=== PATIENT | female | born 2005 | race Hispanic/Latino ===

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

== ENCOUNTER 2024-09-10 03:48 | Emergency (ER) | payer MEDICAID, SELFPAY ==
[2024-09-10 03:48] VITALS: BP 105/76; PULSE 80; RESP 16; TEMP 37; O2SAT 98; BMI 36.9
--- OUTSIDE RECORDS SUMMARY | 2024-09-10 04:16 | XMS RPT_ITS | CCD ---
Author Organization [facility] CliniSyms Care Team Providers Care Lens Generator Name Role Phone LISA, DR MICKEY Barlow Attending Unavaila ble LISA, DR MICEKY Barlow Primary Care Unavaila ble LISA, DR MICKEY Barlow Admitting Unavaila ble Kali, Pratima Referring Unavailable Kali, Pratima Attending Unavailable Kali, Pratima Primary Care Unavailable PHYSICIAN, NOT RECORDED Primary Care Physician U navailable RIDER DO, DR ANTONIO Castrejon Attending Unavailable PHYSICIAN, NOT RECORDED Primary Care Unavaila ble PHYSICIAN, NOT RECORDED Primary Care Unavaila ble RIDER DO, DR ANTONIO Castrejon Attending Unavailable NONE, NONE Primary Care Unavailable NONE, NONE Consulting Unavailable RICK DO~[id number], MERLINE Monique Attending Unavailable RICK DO~[id number], MERLINE Monique Admitting Unavailable NURSEREFERRAL, NURSEREFERRAL Consulting Jenny vailable RICK DO, ISAURA Monique Consulting Unavailable RICK DO, ISAURA Monique Consulting Unavailable DECLINED, Consulting Unavailable DECLINED, Primary Care Unavailable DOMINIQUE DAVENPORT, DR~[id number] ARELIS Attending Unavailable DOMINIQUE DAVENPORT, DR~[id number] ARELIS Admitting Unavailable NURSEREFERRAL, NURSEREFERRAL Consulting Jenny viviana IYER MD, EULOGIO Monique Consulting Unavailable SHIREEN DAVENPORT, EULOGIO Monique Consulting Unavailable DOMINIQUE DAVENPORT, DR INFANTE Consulting Unavaila charles FOX MD, DR INFANTE Consulting Unavaila ble GRAHAM DOLOLA Consulting Unavailable GRAHAM DOLOLA Consulting Unavailable DECLINED, Consulting Unavailable DECLINED, Primary Care Unavailable DOMINIQUE DAVENPORT, DR~[id number] ARELIS Attending Unavailable DOMINIQUE DAVENPORT, DR~[id number] ARELIS Admitting Unavailable NURSEREFERRAL, NURSEREFROCIOAL Consulting Jenny vviiana FOX MD, DR INFANTE Consulting Unavaila charles FOX MD, DR INFANTE Consulting Unavaila ble DECLINED, Consulting Unavailable DECLINED, Primary Care Unavailable DOMINIQUE DAVENPORT, DR~[id number] ARELIS Attending Unavailable DOMINIQUE DAVENPORT, DR~[id number] ARELIS Admitting Unavailable NURSEREFERRAL, NURSEREFERRAL Consulting Jenny FOX MD, DR INFANTE Consulting Unavaila charles FOX MD, DR INFANTE Consulting Unavaila ble NONE, NONE Consulting Unavailable DECLINED, DR Primary Care Unavailable DOMINIQUE DAVENPORT, DR~[id number] ARELIS Attending Unavailable DOMINIQUE DAVENPORT, DR~[id number] ARELIS Admitting Unavailable NURSEREFERRAL, NURSEREFERRAL Consulting Jenny viviana FOX MD, DR INFANTE Consulting Unavaila charles FOX MD, DR INFANTE Consulting Unavaila charles FOX MD, DR~[id number] ARELIS Admitting Unavailable DOMINIQUE DAVENPORT, DR~[id number] ARELIS Attending Unavailable NONE, NONE Primary Care Unavailable NONE, NONE Consulting Unavailable NURSEREFERRAL, NURSEREFERRAL Consulting Jenny FOX MD, DR INFANTE Consulting Unavaila charles FOX MD, DR INFANTE Consulting Unavaila ble NONE, NONE Consulting Unavailable NONE, NONE Primary Care Unavailable DOMINIQUE DAVENPORT, DR~[id number] ARELIS Attending Unavailable DOMINIQUE DAVENPORT, DR~[id number] ARELIS Admitting Unavailable NURSEREFERRAL, NURSEREFERRAL Consulting Jenny FOX MD, DR INFANTE Consulting Unavaila charles FOX MD, DR INFANTE Consulting Unavaila ble NONE, NONE Consulting Unavailable NONE, NONE Primary Care Unavailable DOMINIQUE DAVENPORT, DR~[id number] ARELIS Attending Unavailable DOMINIQUE DAVENPORT, DR~[id number] ARELIS Admitting Unavailable NURSEREFERRAL, NURSEREFERRAL Consulting Jenny FOX MD, DR INFANTE Consulting Unavaila charles FOX MD, DR INFANTE Consulting Unavaila charles FOX MD, DR~[id number] ARELIS Admitting Unavailable DOMINIQUE DAVENPORT, DR~[id number] ARELIS Attending Unavailable NONE, NONE Primary Care Unavailable SHIREEN DAVENPORT, EULOGIO Monique Consulting Unavailable SHIREEN DAVENPORT, EULOGIO Monique Consulting Unavailable NONE, NONE Consulting Unavailable NURSEREFERRAL, NURSEREFERRAL Consulting Jenny FOX MD, DR INFANTE Consulting Unavaila charles FOX MD, DR INFANTE Consulting Unavaila ble DECLINED, Consulting Unavailable DECLINED, DR Primary Care Unavailable DOMINIQUE DAVENPORT, DR~[id number] ARELIS Attending Unavailable DOMINIQUE DAVENPORT, ~[id number] ARELIS Admitting Unavailable NURSEREFERRAL, NURSEREFERRAL Consulting Jenny viviana IYER MD, EULOGIO Monique Consulting Unavailable SHIREEN DAVENPORT, EULOGIO Monique Consulting Unavailable DOMINIQUE DAVENPORT, DR INFANTE Consulting Unavaila charles FOX MD, DR INFANTE Consulting Unavaila ble DECLINED , ~[id number] DECLINED Consulting Unavailable DECLINED , ~[id number] DECLINED Primary Care Unavailable DOMINIQUE DAVENPORT, ARELIS Attending Unavailable DOMINIQUE DAVENPORT, ARELIS Admitting Unavailable NONE, NONE Consulting Unavailable LEIGHA DAVENPORT, YVETTE Consulting Unavailable YVETTE AHUJA MD Consulting Tess FOX MD, ARELIS Consulting Unavailable DOMINIQUE DAVENPORT, DR INFANTE Consulting Unavaila ble DECLINED, Consulting Unavailable DECLINED, DR Primary Care Unavailable DOMINIQUE DAVENPORT, DR~[id number] ARLEIS Attending Unavailable DOMINIQUE DAVENPORT, DR~[id number] ARELIS Admitting Unavailable NURSEREFERRAL, NURSEREFERRAL Consulting Jenny MERLE Lemons CRNA Consulting Unavaila ble MERLE MANN CRNA Consulting Unavaila charles FOX MD, DR INFANTE Consulting Unavaila charles FOX MD, DR INFANTE Consulting Unavaila charles Problems Active Problems Problem Classification Problem Date Documented Date Episodic/Chronic OB-related trauma to perineum and vulva (1 source) Second degree perineal laceration during delivery; Translations: [SECOND DEG PERINEAL LAC DUR DELIV] Onset: 01-23-2024 Episodic Other complications of ; puerperium affecting management of mother (1 source) Streptococcus B carrier state complicating childbirth; Translations: [STREP B [place] STATE COMP CHILDBIRTH] Onset: 01-23-2024 Episodic Other female genital disorders (3 sources) Abnormal uterine and vaginal bleeding, unspecified; Translations: [ABNORMAL UTERINE VAGINAL BLEED UNS] Onset: 03-03-2024 Chronic Other nutritional; endocrine; and metabolic disorders (3 sources) Abnormal weight gain; Translations: [ABNORMAL WEIGHT GAIN] Onset: 03-13-2024 Episodic Other and delivery including normal (10 sources) ; Translations: [Encounter for supervision of normal first , third trimester] Onset: 10-05-2023 02-17-2023 Episodic Comment on above: System added from do cumentation. Status documented as Yes on Admission Other upper respiratory infections (1 source) Acute pharyngitis, unspecified; Translations: [Acute pharyngitis, unspecified] Onset: 08-13-2022 Episodic Residual codes; unclassified (1 source) 39 weeks gestation of ; Translations: [39 WEEKS GESTATION OF ] Onset: 01-23-2024 Episodic Unclassified (2 sources) ENCOUNTER FOR SCREENING FOR COVID-19; Translations: [ENCOUNTER FOR SCREENING FOR COVID-19] Onset: 09-22-2020 Past or Other Problems Problem Classification Problem Date Documented Da te Episodic/Chronic Bacterial infection; unspecified site (3 sources) Chlamydial infection, unspecified; Translations: [CHLAMYDIAL INFECTION UNSPECIFIED] Onset: 09-19-2023 Episodic Other complications of (3 sources) Decreased movements, third trimester, not applicable or unspecified; Translations: [DECR MOVEMENTS 3RD TRI NA/UNS] Onset: 01-09-2024 Episodic Other complications of (3 sources) Decreased movements, unspecified trimester, not applicable or unspecified; Translations: [DECR MOVEMENTS UNS TRI NA/UNS] Onset: 11-13-2023 Episodic Other screening for suspected conditions (not mental disorders or infectious disease) (1 source) Encounter for screening for growth retardation; Translations: [ENC A/TL SCR GROWTH RETARD] Onset: 11-23-2023 Episodic Polyhydramnios and other problems of amniotic cavity (3 sources) Oligohydramnios, third trimester, not applicable or unspecified; Translations: [OLIGOHYDRAMNIOS THIRD TRI NA/UNS] Onset: 12-20-2023 Episodic Residual codes; unclassified (1 source) 37 weeks gestation of ; Translations: [37 WEEKS GESTATION OF ] Onset: 01-10-2024 Episodic Residual codes; unclassified (1 source) 35 weeks gestation of ; Translations: [35 WEEKS GESTATION OF ] Onset: 12-24-2023 Episodic Residual codes; unclassified (1 source) 32 weeks gestation of ; Translations: [32 WEEKS GESTATION OF ] Onset: 11-23-2023 Episodic Residual codes; unclassified (1 source) 22 weeks gestation of ; Translations: [22 WEEKS GESTATION OF ] Onset: 09-26-2023 Episodic Unclassified (1 source) ENCOUNTER FOR SCREENING FOR COVID-19; Translations: [ENCOUNTER FOR SCREENING FOR COVID-19] Onset: 09-22-2020 Results Test Name Value Interpretation Reference Range Facility CHLAM GONORRHEA and TRICH NA Aon 03-18-2024 Chlamydia by EZE Negative Normal Negative [facility] Comment on above: Performed By: #### 4 0667-8 #### [facility] [address] [place] [address] [employer] - Cami VINCENT [id number] Gonococcus by EZE Negative Normal Negative [facility] Comment on above: Performed By: #### 4 0667-8 #### [facility] [address] [place] [address] [employer] - Cami LOMELIIA [id number] Trich vag by EZE Negative Normal Negative [facility] Comment on above: Performed By: #### 4 0667-8 #### [facility] [address] [place] [address] [employer] VINCENT [id number] CULTURE URINEon 01-18-2024 Bacteria identified Cx Nom (U) NO PATHOGENS GROWN AFTER 2 DAYS Normal [facility] Comment on above: Performed By: #### U PRCR #### [facility] [address] [place] [address] Rd. [place] [address] [employer] VINCENT [id number] RPRR SEND OUTon 01-17-2024 Reagin Ab RPR Ql (S) Non-Reactive Normal Non Reactive [facility] Comment on above: Performed By: #### 4 0667-8 #### [facility] [address] [place] [address] [employer] VINCENT [id number] CBC W Auto Differential pane l (Bld)on 01-16-2024 Basophils (Bld) [#/Vol] 0.03 10*3/uL Normal <=0.70 [facility] Comment on above: Performed By: #### 4 0667-8 #### [facility] [address] [place] [address] [employer] - [employer]i VINCENT [id number] Basophils/100 WBC (Bld) 0.2 % Normal <=2.0 [facility] Comment on above: Performed By: #### 4 0667-8 #### [facility] [address] [place] [address] [employer] - Cami LOMELIIA [id number] Eosinophils (Bld) [#/Vol] 0.11 10*3/uL Normal <=0.70 [facility] Comment on above: Performed By: #### 4 0667-8 #### [place] [address] [place] [address] [employer] - Cami LOMELIIA [id number] Eosinophils/100 WBC (Bld) 0.9 % Normal <=10.0 [facility] Comment on above: Performed By: #### 4 0667-8 #### [address] [place] [address] [employer] - Cami LOMELIIA [id number] Erythrocyte distribution width (RBC) [Entitic vol] 41.4 fL Normal 36.4-46.3 [facility] Comment on above: Performed By: #### 4 0667-8 #### [address] [facility] [place] [address] [employer] - Cami LOMELIIA [id number] Hematocrit (Bld) [Volume fraction] 30.3 % Low 37.0-47.0 [facility] Comment on above: Performed By: #### 4 0667-8 #### [address] [place] [address] [employer] - Cami LOMELIIA [id number] Hemoglobin (Bld) [Mass/Vol] 10.0 g/dL Low 12.0-16.0 [facility] Comment on above: Performed By: #### 4 0667-8 #### [address] Director - Cami LOMELIIA [id number] Immature granulocytes (Bld) [#/Vol] 0.05 10*3/uL Normal <=0.10 [facility] Comment on above: Performed By: #### 4 0667-8 #### [place] [address] [place] [address] [employer] - Cami LOMELIIA [id number] Immature granulocytes/100 WBC (Bld) 0.40 % Normal <=1.50 [facility] Comment on above: Performed By: #### 4 0667-8 #### [facility] [address] [place] [address] [employer] - Cami LOMELIIA [id number] Lymphocytes (Bld) [#/Vol] 2.25 10*3/uL Normal 1.20-3.40 [facility] Comment on above: Performed By: #### 4 0667-8 #### [place] [address] [place] [address] [employer] - [employer]i VINCENT [id number] Lymphocytes/100 WBC (Bld) 17.7 % Low 20.0-40.0 [facility] Comment on above: Performed By: #### 4 0667-8 #### [place] [address] [place] [address] [employer] - Cami VINCENT [id number] MCH (RBC) [Entitic mass] 26.5 pg Low 27.0-31.0 [facility] Comment on above: Performed By: #### 4 0667-8 #### [place] [address] [place] [address] [employer] - [employer] VINCENT [id number] MCHC (RBC) [Mass/Vol] 33.0 g/dL Normal 32.0-36.0 [facility] Comment on above: Performed By: #### 4 0667-8 #### [place] [address] [place] [address] [employer] - [employer] VINCENT [id number] MCV (RBC) [Entitic vol] 80.2 fL Normal 80.0-100.0 [facility] Comment on above: Performed By: #### 4 0667-8 #### [place] [address] [place] [address] [employer] - [employer] VINCENT [id number] Monocytes (Bld) [#/Vol] 0.65 10*3/uL High 0.10-0.60 [facility] Comment on above: Performed By: #### 4 0667-8 #### [address] [place] [address] [employer] - Cami Olvera CLIA [id number] Monocytes/100 WBC (Bld) 5.1 % Normal <=8.0 [facility] Comment on above: Performed By: #### 4 0667-8 #### [place] [address] [employer] - Cami Olvera CLIA [id number] Neutrophils (Bld) [#/Vol] 9.60 10*3/uL High 1.40-6.50 [facility] Comment on above: Performed By: #### 4 0667-8 #### [place] [address] [employer] - Cami Olvera CLIA [id number] Neutrophils/100 WBC (Bld) 75.7 % High 50.0-70.0 [facility] Comment on above: Performed By: #### 4 0667-8 #### [place] [address] [employer] - Cami LOMELIIA [id number] Nucleated RBC (Bld) [#/Vol] 0.00 10*3/uL Normal <=0.10 [facility] Comment on above: Performed By: #### 4 0667-8 #### [place] [address] [employer] - Cami Olvera CLIA [id number] Platelet mean volume (Bld) [Entitic vol] 11.1 fL Normal 9.0-13.0 [facility] Comment on above: Performed By: #### 4 0667-8 #### [place] [address] [employer] - [employer]i Olvera CLIA [id number] Platelets (Bld) [#/Vol] 300 10*3/uL Normal 130-400 [facility] Comment on above: Performed By: #### 4 0667-8 #### [facility] [address] [place] [address] [employer] - [employer] VINCENT [id number] RBC (Bld) [#/Vol] 3.78 10*6/uL Low 4.00-6.30 [facility] Comment on above: Performed By: #### 4 0667-8 #### [place] [address] [place] [address] [employer] - [employer] VINCENT [id number] WBC (Bld) [#/Vol] 12.69 10*3/uL High 4.80-10.80 [facility] Comment on above: Performed By: #### 4 0667-8 #### [address] [place] [address] [employer] VINCENT [id number] Drugs identified Screen Nom (U)on 01-16-2024 Amphetamines Ql (U) Not detected Normal CUTOFF = 500 K [facility] Comment on above: Performed By: #### 4 0667-8 #### [place] [address] [place] [address] [employer] - [employer] VINCENT [id number] Barbiturates Ql (U) Not detected Normal CUTOFF = 200 K [facility] Comment on above: Performed By: #### 4 0667-8 #### [place] [address] [place] [address] [employer] - [employer] VINCENT [id number] Benzodiazepines Ql (U) Not detected Normal CUTOFF = 15 0 [facility] Comment on above: Performed By: #### 4 0667-8 #### [place] [address] [address] [place] [address] [employer] - [place] VINCENT [id number] Cocaine Ql (U) Not detected Normal CUTOFF = 150 [facility] Comment on above: Performed By: #### 4 0667-8 #### [place] [address] [place] [address] [employer] - [employer] VINCENT [id number] HDRUG Drugs of abuse screening provides only a preliminary analytical test result. A more specific alternate chemical method must be used in order to obtain a confimed analytical result. Clinical consideration and professional judgment should be applied to any drug of abuse test result, particularly when preliminary positive results are obtained. Normal [facility] Comment on above: Performed By: #### 4 0667-8 #### [facility] [address] [place] [address] [employer] - Cami LOMELIIA [id number] Methadone Ql (U) Not detected Normal CUTOFF = 200 [facility] Comment on above: Performed By: #### 4 0667-8 #### [place] [address] [place] [address] [employer] - [employer] VINCENT [id number] Opiates Ql (U) Not detected Normal CUTOFF = 300 [facility] Comment on above: Performed By: #### 4 0667-8 #### [facility] [address] [place] [address] [employer] - Cami LOMELIIA [id number] oxyCODONE Ql (U) Not detected Normal CUTOFF = 100 [facility] Comment on above: Performed By: #### 4 0667-8 #### [facility] [address] [place] [address] [employer] - [place] VINCENT [id number] Phencyclidine Ql (U) Not detected Normal CUTOFF = 25 [facility] Comment on above: Performed By: #### 4 0667-8 #### [facility] [address] [place] [address] [employer] - Cami LOMELIIA [id number] Tetrahydrocannabinol Ql (U) Not detected Normal CUTOFF = 50 [facility] Comment on above: Performed By: #### 4 0667-8 #### [facility] [address] [place] [address] [employer] VINCENT [id number] URINALYSIS with reflex to CU LTUREon 01-16-2024 Bacteria LM Ql (Urine sed) Negative Normal TRACE [facility] Comment on above: Performed By: #### G CCHTR #### Performed for [facility] [address] [place], [place] [address] Bilirubin (U) [Mass/Vol] Negative Normal NEGATIVE [facility] Comment on above: Performed By: #### G CCHTR #### Performed for [facility] [address], [place] [address] Clarity (U) CLEAR Normal CLEAR [facility] Comment on above: Performed By: #### G CCHTR #### Performed for [facility] [address] [place], [place] [address] Color (U) YELLOW Normal YELLOW [facility] Comment on above: Performed By: #### G CCHTR #### Performed for [facility] [address] [place], [place] [address] Glucose Test strip (U) [Mass/Vol] Negative Normal NEGATIVE [facility] Comment on above: Performed By: #### G CCHTR #### Performed for [facility] [address], [place] [address] HMICRO MICROSCOPIC Normal [facility] Comment on above: Performed By: #### G CCHTR #### Performed for [facility] [address] [address] Hyaline casts (Urine sed) [#/Area] 0-8 Normal 0-8 [facility] Comment on above: Performed By: #### G CCHTR #### Performed for [facility] [address], [place] [address] Ketones (U) [Mass/Vol] Negative Normal NEGATIVE [facility] Comment on above: Performed By: #### G CCHTR #### Performed for [facility] [address] [address] Leukocyte esterase Qn (U) 3+ Abnormal TRACE [facility] Comment on above: Performed By: #### G CCHTR #### Performed for [facility] [address] [place], [place] [address] Nitrite Ql (U) Negative Normal NEGATIVE [facility] Comment on above: Performed By: #### G CCHTR #### Performed for [facility] [address] [place], [place] [address] pH (U) 6.0 [pH] Normal 5.5-7.5 [facility] Comment on above: Performed By: #### G CCHTR #### Performed for [facility] [address] [place], [place] [address] Protein (U) [Mass/Vol] Negative Normal NEGATIVE [facility] Comment on above: Performed By: #### G CCHTR #### Performed for [address] [address] RBC (U) [#/Vol] Negative Normal NEGATIVE [facility] Comment on above: Performed By: #### G CCHTR #### Performed for [address] [address] RBC LM.HPF (Urine sed) [#/Area] 0-4 Normal 0-4 [facility] Comment on above: Performed By: #### G CCHTR #### Performed for [address] [address] Specific gravity (U) [Rel density] 1.021 Normal 1.010-1.035 [facility] Comment on above: Performed By: #### G CCHTR #### Performed for [address] [address] SQUAMOUS EPITHELIALS 0-5 Normal 0-5 [facility] Comment on above: Performed By: #### G CCHTR #### Performed for [address] [address] Urobilinogen Qn (U) 0.2 {Rodger'U}/dL Normal <=1.0 [facility] Comment on above: Performed By: #### G CCHTR #### Performed for [address] [address] WBC LM.HPF (Urine sed) [#/Area] 50-100 Abnormal 0-5 [facility] Comment on above: Performed By: #### G CCHTR #### Performed for [address] [address] CBC W Auto Differential pane l (Bld)on 01-01-2024 Basophils (Bld) [#/Vol] 0.02 10*3/uL Normal <=0.70 [facility] Comment on above: Performed By: #### 4 0667-8 #### [address] [place] [address] [employer] - Cami LOMELIIA [id number] Basophils/100 WBC (Bld) 0.2 % Normal <=2.0 [facility] Comment on above: Performed By: #### 4 0667-8 #### [address] [place] [address] [employer] - [place] LOMELIIA [id number] Eosinophils (Bld) [#/Vol] 0.11 10*3/uL Normal <=0.70 [facility] Comment on above: Performed By: #### 4 0667-8 #### [address] [place] [address] [employer] - Cami Olvera CLIA [id number] Eosinophils/100 WBC (Bld) 1.1 % Normal <=10.0 [facility] Comment on above: Performed By: #### 4 0667-8 #### [address] [facility] [place] [address] [employer] - [place]i LOMELIIA [id number] Erythrocyte distribution width (RBC) [Entitic vol] 40.2 fL Normal 36.4-46.3 [facility] Comment on above: Performed By: #### 4 0667-8 #### [address] [place] [address] [employer] - [employer] LOMELIIA [id number] Hematocrit (Bld) [Volume fraction] 30.3 % Low 37.0-47.0 [facility] Comment on above: Performed By: #### 4 0667-8 #### [address] [place] [address] [employer] - [employer]i Olvera CLIA [id number] Hemoglobin (Bld) [Mass/Vol] 10.0 g/dL Low 12.0-16.0 [facility] Comment on above: Performed By: #### 4 0667-8 #### [place] [address] [employer] Olvera CLIA [id number] Immature granulocytes (Bld) [#/Vol] 0.05 10*3/uL Normal <=0.10 [facility] Comment on above: Performed By: #### 4 0667-8 #### [place] [address] [employer] Olvera CLIA [id number] Immature granulocytes/100 WBC (Bld) 0.50 % Normal <=1.50 [facility] Comment on above: Performed By: #### 4 0667-8 #### [place] [address] [employer] Olvera CLIA [id number] Lymphocytes (Bld) [#/Vol] 1.76 10*3/uL Normal 1.20-3.40 [facility] Comment on above: Performed By: #### 4 0667-8 #### [place] [address] [employer] - [employer]i Olvera CLIA [id number] Lymphocytes/100 WBC (Bld) 17.6 % Low 20.0-40.0 [facility] Comment on above: Performed By: #### 4 0667-8 #### [place] [address] [employer] - [employer] Olvera CLIA [id number] MCH (RBC) [Entitic mass] 27.0 pg Normal 27.0-31.0 [facility] Comment on above: Performed By: #### 4 0667-8 #### [place] [address] [employer] - [employer]i Olvera CLIA [id number] MCHC (RBC) [Mass/Vol] 33.0 g/dL Normal 32.0-36.0 [facility] Comment on above: Performed By: #### 4 0667-8 #### [facility] [address] [place] [address] [employer] - Cami LOMELIIA [id number] MCV (RBC) [Entitic vol] 81.9 fL Normal 80.0-100.0 [facility] Comment on above: Performed By: #### 4 0667-8 #### [place] [address] [place] [address] [employer] - [employer]i LOMELIIA [id number] Monocytes (Bld) [#/Vol] 0.53 10*3/uL Normal 0.10-0.60 [facility] Comment on above: Performed By: #### 4 0667-8 #### [place] [address] [place] [address] [employer] - [employer]i LOMELIIA [id number] Monocytes/100 WBC (Bld) 5.3 % Normal <=8.0 [facility] Comment on above: Performed By: #### 4 0667-8 #### [place] [address] [place] [address] [employer] - Cami LOMELIIA [id number] Neutrophils (Bld) [#/Vol] 7.55 10*3/uL High 1.40-6.50 [facility] Comment on above: Performed By: #### 4 0667-8 #### [address] [place] [address] [employer] - Cami LOMELIIA [id number] Neutrophils/100 WBC (Bld) 75.3 % High 50.0-70.0 [facility] Comment on above: Performed By: #### 4 0667-8 #### [address] [place] [address] [employer] - Cami LOMELIIA [id number] Nucleated RBC (Bld) [#/Vol] 0.00 10*3/uL Normal <=0.10 [facility] Comment on above: Performed By: #### 4 0667-8 #### [place] [address] [place] [address] [employer] - Cami VINCENT [id number] Platelet mean volume (Bld) [Entitic vol] 10.9 fL Normal 9.0-13.0 [facility] Comment on above: Performed By: #### 4 0667-8 #### [facility] [address] [place] [address] [employer] - Cami LOMELIIA [id number] Platelets (Bld) [#/Vol] 296 10*3/uL Normal 130-400 [facility] Comment on above: Performed By: #### 4 0667-8 #### [facility] [address] [place] [address] [employer] - Cami VINCENT [id number] RBC (Bld) [#/Vol] 3.70 10*6/uL Low 4.00-6.30 [facility] Comment on above: Performed By: #### 4 0667-8 #### [place] [address] [place] [address] [employer] - Cami VINCENT [id number] WBC (Bld) [#/Vol] 10.02 10*3/uL Normal 4.80-10.80 [facility] Comment on above: Performed By: #### 4 0667-8 #### [facility] [address] [place] [address] [employer] - Cami VINCENT [id number] CREATININEon 01-01-2024 Creatinine [Mass/Vol] 0.44 mg/dL Low 0.51-0.95 [facility] Comment on above: Performed By: #### 1 4805-6, 1920-8, 1742-6, 3084-1, 2160-0 #### [facility] [address] [place] [address] [employer] - Cami VINCENT [id number] Creatinine [Mass/Vol]on 12-11 GFR/1.73 sq M.predicted MDRD (S/P/Bld) [Vol rate/Area] mL/min/{1.73_m2} Normal >=60 [facility] Comment on above: Performed By: #### 1 4805-6, 8, 1741-08, 3083-03, 2159-0 #### [facility] [address] [facility]. [place] [address] [employer] - Cami VINCENT [id number] HGFR GLOMERULAR FILTRATION RATE INTERPRETATION~The eGFR is calculated using the MDRD equation.~This equation has been validated in patients with chronic kidney disease;~however, it underestimates the GFR in healthy patients with GFR's over 60 mL/min.~The equation is not valid in children under the age of 18.~NOTE: Criteria for Chronic Kidney Disease:~ ~1. Kidney damage for at least three months, as defined~by structural or functional abnormalities of the kidney,~with or without decreased glomerular filtration rate, manifested by either:~* Pathological abnormalities or~* Markers of Kidney damage, including abnormalities in~the composition of the blood or urine or abnormalities in imaging tests.~ ~2. GFR <60 mL/min/1.73 m squared for at least three months, with or without kidney damage.~ Normal [facility] Comment on above: Performed By: #### 1 4805-6, 1919-10, 1741-08, 3083-03, 2159-0 #### [facility] [address] [place] [address] [employer] - Cami VINCENT [id number] LDHon 01-01-2024 LDH Pyruvate to lactate reaction [Catalytic activity/Vol] 123 U/L Normal 84-246 [facility] Comment on above: Performed By: #### 1 4805-6, 8, 6, 3083-, 0-0 #### [facility] [address] [place] [address] [employer] - Cami VINCENT [id number] SGOT Diana 01-01-2024 AST [Catalytic activity/Vol] 11 U/L Low 15-37 [facility] Comment on above: Performed By: #### 1 4805-6, 1919-10, 1742-6, 3084-1, 2160-0 #### [facility] [address] [place] [address] [employer] - Cami VINCENT [id number] SGPT Marie 01-01-2024 ALT [Catalytic activity/Vol] 9 U/L Low 14-59 [facility] Comment on above: Performed By: #### 1 4805-6, 0-8, 1742-6, 3084-1, 2160-0 #### [facility] [address] [place] [address] [employer] - Turtle Beacherick LOMELIResident Research [id number] URIC ACIDon 01-01-2024 Urate [Mass/Vol] 3.9 mg/dL Normal 2.6-6.0 [facility] Comment on above: Performed By: #### 1 4805-6, 1919-8, 1741-6, 3084-1, 2160-0 #### [facility] [address] [place] [address] [employer] - SuperbIA [id number] URINE PROTEIN to CREAT RATIO RANDOMon 01-01-2024 Creatinine (U) [Mass/Vol] 119.00 mg/dL Normal [facility] Comment on above: Performed By: #### U PRCR #### [facility] [address] [place] [address] [employer] - Cami Olvera [employer] FinancialIA [id number] Protein Ql (U) 18 mg/dL High <=12 [facility] Comment on above: Performed By: #### U PRCR #### [facility] [address] [place] [address] [employer] - Turtle Beachrell Wallaby FinancialIA [id number] URINE MA/CR RATIO 0.2 mg/mg Normal <=0.2 [facility] Comment on above: Result Comment: A mi lligram per milligram protein to creatinine ratio of 0.2 or less is normal, whereas a ratio of 3.5 or greater is in the nephrotic range. Performed By: #### U PRCR #### [facility] [address] [place] [address] [employer] - Cami VINCENT [id number] CULTURE GROUP B STREP ONLYon 12-26-2023 CULTURE GROUP B STREP ONLY Positive Normal [facility] Comment on above: Performed By: #### U PRCR #### [facility] [address] [place] [address] [employer] - Cami Olveraerick VINCENT [id number] ULTRASOUND 2ND OR 3RD TRIMESTERon 11-21-2023 ULTRASOUND 2ND OR 3RD TRIMESTER EXAM: ULTRASOUND 2ND OR 3RD TRIMESTER 11/21/2023 10:19 AM EDT: HISTORY: care: primigravida. FINDINGS: EVALUATION Number of Fetuses : 1 Presentation: Cephalic. Heart Rate: 148 bpm. Placenta: Anterior. Placenta cord insertion: Normal. LOPEZ: 8.50 cm (5th-50th percentile) MVP: 3.16 cm, right upper quadrant CERVIX LENGTH: Not obtained. GESTATIONAL AGE: Provided gestational age: 31 weeks, 1 day Provided LINDA: 01/22/2024 Sonographic gestational age: 32 weeks, 5 days Sonographic LINDA: 01/11/2024 BIOMETRY: BPD: 8.31. HC: 30.13. AC: 28.62. FL: 5.98. Estimated weight 1954 g +/- 293.1 g (4 pounds, 5 ounces). 78.0th percentile Growth ratios: Normal. CI: 79.14 FL/BPD: 71.96 HC/AC: 1.05 FL/AC: 20.89 FL/HC: 19.85 ANATOMY: HEAD, FACE, NECK: Lateral ventricle: Normal Appearance Choroid plexus: Normal Appearance Midline falx: Normal Appearance Cavum: Normal Appearance Cerebellum: Normal Appearance Cisterna Magna: Normal Appearance Facial features: Normal Appearance CHEST: 4 chamber heart: Normal Appearance LVOT/RVOT: Normal Appearance Diaphragm: Normal appearance ABDOMEN: Stomach: Normal Appearance Abdominal situs: Normal Appearance Kidneys: Normal Appearance Bladder: Normal Appearance Cord insertion: Normal Appearance Cord: 3 vessels Spine: Normal Appearance EXTREMITIES: Lower Extremities: Normal Appearance Upper Extremities: Normal Appearance MATERNAL FINDINGS: No maternal adnexal abnormality. IMPRESSION: 1. Living intrauterine , cephalic presentation. 2. Composite sonographic age 32 weeks, 5 days. 3. Estimated weight 1954 g, 4 pounds, 5 ounces. Normal [facility] URINALYSIS with reflex to CU LTUREon 11-13-2023 Bacteria LM Ql (Urine sed) Normal TRACE [facility] Comment on above: Performed By: #### 4 0667-8 #### [facility] [address] [place] [address] [employer] - Cami VINCENT [id number] Bilirubin (U) [Mass/Vol] Negative Normal NEGATIVE [facility] Comment on above: Performed By: #### 4 0667-8 #### [facility] [address] [place] [address] [employer] - Cami VINCENT [id number] Clarity (U) CLEAR Normal CLEAR [facility] Comment on above: Performed By: #### 4 0667-8 #### [facility] [address] [place] [address] [employer] - Cami VINCENT [id number] Color (U) YELLOW Normal YELLOW [facility] Comment on above: Performed By: #### 4 0667-8 #### [facility] [address] [place] [address] [employer] - Cami VINCENT [id number] Glucose Test strip (U) [Mass/Vol] Negative Normal NEGATIVE [facility] Comment on above: Performed By: #### 4 0667-8 #### [facility] [address] [place] [address] [employer] - Cami VINCENT [id number] HMICRO MICROSCOPIC Normal [facility] Comment on above: Performed By: #### 4 0667-8 #### [facility] [address] [place] [address] [employer] - Cami VINCENT [id number] Hyaline casts (Urine sed) [#/Area] Normal 0-8 [facility] Comment on above: Performed By: #### 4 0667-8 #### [facility] [address] [place] [address] [employer] - Cami VINCENT [id number] Ketones (U) [Mass/Vol] Negative Normal NEGATIVE [facility] Comment on above: Performed By: #### 4 0667-8 #### [facility] [address] [facility] [place] [address] [employer] - Cami LOMELIIA [id number] Leukocyte esterase Qn (U) Negative Normal TRACE [facility] Comment on above: Performed By: #### 4 0667-8 #### [facility] [address] [facility] [place] [address] [employer] - Cami LOMELIIA [id number] Nitrite Ql (U) Negative Normal NEGATIVE [facility] Comment on above: Performed By: #### 4 0667-8 #### [facility] [address] [place] [address]. [place] [address] [employer] - Cami LOMELIIA [id number] pH (U) 6.0 [pH] Normal 5.5-7.5 [facility] Comment on above: Performed By: #### 4 0667-8 #### [facility] [address] [place] [address]. [place] [address] [employer] - Cami LOMELIIA [id number] Protein (U) [Mass/Vol] Negative Normal NEGATIVE [facility] Comment on above: Performed By: #### 4 0667-8 #### [facility] [address] [place] [address]. [place] [address] [employer] - Cami LOMELIIA [id number] RBC (U) [#/Vol] Negative Normal NEGATIVE [facility] Comment on above: Performed By: #### 4 0667-8 #### [facility] [address] [facility] [place] [address] [employer] - Cami LOMELIIA [id number] RBC LM.HPF (Urine sed) [#/Area] Normal 0-4 [facility] Comment on above: Performed By: #### 4 0667-8 #### [facility] [address] [facility] [place] [address] [employer] - Cami Olvera CLIA [id number] Specific gravity (U) [Rel density] 1.010 Normal 1.010-1.035 [facility] Comment on above: Performed By: #### 4 0667-8 #### [facility] [address] [place] [address] [employer] - [facility] [id number] SQUAMOUS EPITHELIALS Normal 0-5 [facility] Comment on above: Performed By: #### 4 0667-8 #### [address] [place] [address] [employer] - [facility] [id number] Urobilinogen Qn (U) 0.2 {Rodger'U}/dL Normal <=1.0 [facility] Comment on above: Performed By: #### 4 0667-8 #### [address] [place] [address] [employer] - [facility] [id number] WBC LM.HPF (Urine sed) [#/Area] Normal 0-5 [facility] Comment on above: Performed By: #### 4 0667-8 #### [address] [place] [address] [employer] - [facility] [id number] CBC panel Auto (Bld)on 10-28 Erythrocyte distribution width (RBC) [Entitic vol] 39.6 fL Normal 36.4-46.3 [facility] Comment on above: Performed By: #### G CCHTR #### Performed for [facility] [address] [place] [address] Hematocrit (Bld) [Volume fraction] 32.2 % Low 37.0-47.0 [facility] Comment on above: Performed By: #### G CCHTR #### Performed for [place] [address] Hemoglobin (Bld) [Mass/Vol] 10.8 g/dL Low 12.0-16.0 [facility] Comment on above: Performed By: #### G CCHTR #### Performed for [place] [address] MCH (RBC) [Entitic mass] 28.7 pg Normal 27.0-31.0 [facility] Comment on above: Performed By: #### G CCHTR #### Performed for [address] [address] MCHC (RBC) [Mass/Vol] 33.5 g/dL Normal 32.0-36.0 [facility] Comment on above: Performed By: #### G CCHTR #### Performed for [address] [address] MCV (RBC) [Entitic vol] 85.6 fL Normal 80.0-100.0 [facility] Comment on above: Performed By: #### G CCHTR #### Performed for [address] [address] Platelet mean volume (Bld) [Entitic vol] 10.7 fL Normal 9.0-13.0 [facility] Comment on above: Performed By: #### G CCHTR #### Performed for [address] [address] Platelets (Bld) [#/Vol] 292 10*3/uL Normal 130-400 [facility] Comment on above: Performed By: #### G CCHTR #### Performed for [address] [address] RBC (Bld) [#/Vol] 3.76 10*6/uL Low 4.00-6.30 [facility] Comment on above: Performed By: #### G CCHTR #### Performed for [address] [address] WBC (Bld) [#/Vol] 10.04 10*3/uL Normal 4.80-10.80 [facility] Comment on above: Performed By: #### G CCHTR #### Performed for [address] [address] GLUCOSE CHALLENGEon 10-29-19 24 Glucose 1 Hr post dose glucose [Mass/Vol] 89 mg/dL Normal 70-140 [facility] Comment on above: Performed By: #### 4 0667-8 #### [place] [address] [facility] [place] [address] [employer] - Camisolomon Olvera ARMANIEDISON [id number] Glucose 1 Hr post dose gluco se [Mass/Vol]on 10-29-2023 HGLUCHAL NOTE: If patient value is equal to or exceeds 140 mg/dL, the 3 HR Oral Glucose Tolerance Test is recommended. Normal [facility] Comment on above: Performed By: #### 4 0667-8 #### [address] [place] [address] [employer] - Cami LOMELIEDISON [id number] CULTURE URINEon 10-07-2023 CULTURE URINE COLONY COUNT = ZERO COLONY FORMING UNITS, ML ISOL NO GROWTH OBSERVED AFTER 1 DAY NO GROWTH OBSERVED AFTER 2 DAYS Normal [facility] Comment on above: Performed By: #### G CCHTR #### Performed for [place] [address] RPRR SEND OUTon 10-07-2023 Reagin Ab RPR Ql (S) Non-Reactive Normal Non Reactive [facility] Comment on above: Performed By: #### R PRR #### Performed for [place] [address] HEP B SURFACE Agon HBV surface Ag Ql (S) Non-Reactive Normal NONREACTIVE [facility] Comment on above: Performed By: #### G CCHTR #### Performed for [place] [address] HHBVSAG INTERPRETATION OF RESULTS A NONREACTIVE test result means that the specimen is presumed to be negative for HBsAg. A REACTIVE test result means that the specimen is reactive for HBsAg. All reactive results will be followed up with confirmatory testing. Normal [facility] Comment on above: Performed By: #### G CCHTR #### Performed for [place] [address] HEP C Ab with REFLEX CONFIRM ATIONon 10-05-2023 HEP C Ab Non-Reactive Normal [facility] Comment on above: Performed By: #### G CCHTR #### Performed for [address], [place] [address] HHCV INTERPRETATION OF RESULTS A NONREACTIVE test result means that the specimen is presumed to be negative for Hep C Ab. A REACTIVE test result means that the specimen is reactive for Hep C Ab. All reactive results will be followed up with confirmatory testing. Normal [facility] Comment on above: Performed By: #### G [facility] #### Performed for [place] [address] [place] [address] HIV RAPID W/CONFIRMATIONon 0 10-05-2023 HHIV INTERPRETATION OF RESULTS A NON REACTIVE test result means that HIV-1 and HIV-2 antibodies and p24 antigen have not been detected in the specimen. A REACTIVE test result means that HIV-1 and HIV-2 antibodies and/or p24 antigen have been detected in the specimen. This HIV 1,2 and p24 antigen test is a rapid screen for the presence of HIV 1 and 2 antibodies and p24 antigen. All reactive test results will be followed up with confirmatory testing. Normal [facility] Comment on above: Performed By: #### H IVRAP #### [address] [place] [address] [employer] - Cami VINCENT [id number] HIV 1+2 Ab Ql (S) Non-Reactive Normal NON REACTIVE [facility] Comment on above: Performed By: #### H IVRAP #### [address] [place] [address] [employer] - Cami LOMELIIA [id number] Non-Reactive Normal NON REACTIVE [facility] Comment on above: Performed By: #### H IVRAP #### [place] [address] [place] [address] [employer] - Cami LOMELIIA [id number] RUBELLA Ab IgGon 10-05-2023 Rubella virus IgG IA Ql 27.9 IU/mL Normal [facility] Comment on above: Performed By: #### 4 0667-8 #### [place] [address] [place] [address] [employer] - Cami LOMELIIA [id number] Rubella virus IgG IA Qlon HRUBELLA RUBELLA IgG INTERPRETATION <5.0 IU/mL Non-immune 5.0-9.9 IU/mL Equivocal >10.0 IU/mL Immune Normal [facility] Comment on above: Performed By: #### 4 0667-8 #### [facility] [address] [place], [place] [address] [employer] - Cami VINCENT [id number] VARICELLA-ZOSTER IgGon 10-04 HVARZOSG VARICELLA-ZOSTER IgG INTERPRETATION TV < 0.60 Negative 0.60 /= 0.90 Positive Normal [facility] Comment on above: Performed By: #### G CCHTR #### Performed for [facility] [address], [place] [address] VARICELLA-ZOSTER IgG 0.10 IU/mL Normal [facility] Comment on above: Performed By: #### G CCHTR #### Performed for [facility] [address] [place], [place] [address] CHLAM GONORRHEA and TRICH NA Aon 09-22-2023 Chlamydia by EZE Negative Normal Negative [facility] Comment on above: Performed By: #### G CCHTR #### Performed for [facility] [address] [place], [place] [address] Gonococcus by EZE Negative Normal Negative [facility] Comment on above: Performed By: #### G CCHTR #### Performed for [place] [address] [place], [place] [address] Trich vag by EZE Negative Normal Negative [facility] Comment on above: Performed By: #### G CCHTR #### Performed for [facility] [address], [place] [address] HCGon 02-23-2023 Date of LMP Normal [facility] ([place]) Comment on above: Performed By: #### H CG #### [facility] [address] [place] [address] hCG, quantitative 31.4 mIU/mL Normal [facility] ([place]) Comment on above: Result Comment: Enrique titative hCG reference ranges: Non adults. . . . . . . . . . .0 - 5 mIU/mL (All values referenced to 1st IRP / 3rd IS 75/537 standards.) females based on gestational age: 1 week. . . . . . . . . . . . . . . .5 - 50 mIU/mL 2 weeks . . . . . . . . . . . . . . .50 - 500 mIU/mL 3 weeks . . . . . . . . . . . . . . .100 - 10,000 mIU/ml 4 weeks . . . . . . . . . . . . . . .1,000 - 30,000 mIU/mL 6-8 weeks . . . . . . . . . . . . . . .12,000 - 270,000 mIU/mL 12 weeks . . . . . . . . . . . . . . .15,000 - 220,000 mIU/mL 2nd trimester . . . . . . . . . . . .2,500 - 82,000 mIU/mL 3rd trimester . . . . . . . . . . . .2,400 - 50,000 mIU/mL Performed By: #### H CG #### [address] [address] .Auto Diffon 02-18-2023 Basophil, Absolute 0.0 10 3/mcL Normal 0.0-0.2 [facility] ([place]) Comment on above: Performed By: #### A SARAH GATES, HCGQ, MDW, CBC, ANEU #### [address] [address] Basophils/100 WBC (Bld) 0.4 % Normal 0.0-2.5 A [facility] ([place]) Comment on above: Performed By: #### A SARAH GATES, HCGQ, MDW, CBC, ANEU #### [address] [address] Eosinophil, Absolute 0.2 10 3/mcL Normal 0.0-0.4 [facility] ([place]) Comment on above: Performed By: #### A YAJAIRA ADTEJINDER, HCGQ, MDW, CBC, ANEU #### [address] [address] Eosinophils/100 WBC (Bld) 1.6 % Normal 0.0-7.0 [facility] ([place]) Comment on above: Performed By: #### A BOG, ADIFF, HCGQ, MDW, CBC, ANEU #### [address] [address] Lymphocyte, Absolute 2.8 10 3/mcL Normal 0.8-3.9 [facility] ([place]) Comment on above: Performed By: #### A BOG, ADIFF, HCGQ, MDW, CBC, ANEU #### [address] [address] Lymphocytes/100 WBC (Bld) 27.8 % Normal 10.0-50.0 [facility] ([place]) Comment on above: Performed By: #### A BOG, ADIFF, HCGQ, MDW, CBC, ANEU #### [address] [address] Monocyte, Absolute 0.8 10 3/mcL Normal 0.2-1.0 [facility] ([place]) Comment on above: Performed By: #### A BOG, ADIFF, HCGQ, MDW, CBC, ANEU #### [address] [address] Monocytes/100 WBC (Bld) 7.9 % Normal 1.7-13.0 [facility] [place] Comment on above: Performed By: #### A BOG, ADIFF, HCGQ, MDW, CBC, ANEU #### [address] [address] Neutrophils/100 WBC (Bld) 62.3 % Normal 37.0-80.0 [facility] ([place]) Comment on above: Performed By: #### A BOG, ADIFF, HCGQ, MDW, CBC, ANEU #### [address] [address] .MDWon 02-18-2023 Monocyte Distribution Width 17.54 Normal 0.00-20.00 [facility] ([place]) Comment on above: Result Comment: For ED adult patients suspected of sepsis, MDW<=20.0 does not rule out sepsis or risk of sepsis Performed By: #### A BOG, ADIFF, HCGQ, MDW, CBC, ANEU #### [place] [address] .NEUABSon 02-18-2023 Neutrophil, Absolute 6.3 10 3/mcL High 2.9-6.2 [facility] ([place]) Comment on above: Performed By: #### A BOG, ADIFF, HCGQ, MDW, CBC, ANEU #### [place] [address] CBCon 02-18-2023 Erythrocyte distribution width (RBC) [Ratio] 13.0 % Normal 11.5-14.5 [facility] ([place]) Comment on above: Performed By: #### A BOG, ADIFF, HCGQ, MDW, CBC, ANEU #### [place] [address] Hematocrit (Bld) [Volume fraction] 35.2 % Low 37.0-47.0 [facility] ([place]) Comment on above: Performed By: #### A BOG, ADIFF, HCGQ, MDW, CBC, ANEU #### [place] [address] Hgb 11.8 G/dL Low 12.0-16.0 [facility] ([place]) Comment on above: Performed By: #### A BOG, ADIFF, HCGQ, MDW, CBC, ANEU #### [place] [address] MCH (RBC) [Entitic mass] 27.1 pg Normal 27.0-31.2 [facility] ([place]) Comment on above: Performed By: #### A BOG, ADIFF, HCGQ, MDW, CBC, ANEU #### [place] [address] MCHC 33.4 G/dL Normal 33.0-37.0 [facility] ([place]) Comment on above: Performed By: #### A BOG, ADIFF, HCGQ, MDW, CBC, ANEU #### [place] [address] [place], [place] [address] MCV (RBC) [Entitic vol] 81.1 fL Normal 80.0-94.0 A [facility] ([place]) Comment on above: Performed By: #### A BOG, ADIFF, HCGQ, MDW, CBC, ANEU #### [address] [address] Platelet 362 10 3/mcL Normal 130-400 [facility] ([place]) Comment on above: Performed By: #### A BOG, ADIFF, HCGQ, MDW, CBC, ANEU #### [address] [address] Platelet mean volume (Bld) [Entitic vol] 8.1 fL Normal 7.4-10.4 [facility] ([place]) Comment on above: Performed By: #### A BOG, ADIFF, HCGQ, MDW, CBC, ANEU #### [address] [address] RBC 4.34 10 6/mcL Normal 4.20-5.40 [facility] ([place]) Comment on above: Performed By: #### A BOG, ADIFF, HCGQ, MDW, CBC, ANEU #### [address] [address] WBC 10.2 10 3/mcL Normal 4.6-10.8 [facility] ([place]) Comment on above: Performed By: #### A BOG, ADIFF, HCGQ, MDW, CBC, ANEU #### [address] [address] Gel ABOon 02-18-2023 ABO/Rh Interp Positive Invalid Interpretation Code [facility] ([place]) Comment on above: Performed By: #### A BOG, ADIFF, HCGQ, MDW, CBC, ANEU #### [address] [address] HCGQon 02-18-2023 hCG, quantitative 1583.2 mIU/mL Normal [facility] ([place]) Comment on above: Result Comment: HCG Levels with Gestation age: 0.2- 1 week. . . . . . . . . . . . . . . 5 - 50 mIU/mL 1-2 weeks . . . . . . . . . . . . . . . 50 - 500 mIU/mL 2-3 weeks . . . . . . . . . . . . . . . 100 - 5,000 mIU/ml 3-4 weeks . . . . . . . . . . . . . . . 500 - 10,000 mIU/mL 4-5 weeks . . . . . . . . . . . . . . . 1,000 - 5,000 mIU/mL 5-6 weeks . . . . . . . . . . . . . . . 10,000 - 100,000 mIU/mL 6-8 weeks . . . . . . . . . . . . . . . 15,000 - 200,000 mIU/mL 2-3 months . . . . . . . . . . . . . . . 10,000 - 100,000 mIU/mL Performed By: #### A BOG, ADTEJINDER, HCGQ, MDW, CBC, ANEU #### [place] [id number] LABORATORYOrdered By: Glendy Betancur on 02-17-2023 ABO/Rh Interp Positive Invalid Interpretation Code AO BB SS LABORATORYOrdered By: SYSTEM SYSTEM on 02-17-2023 Basophil, Absolute 0.0 103/mcL Normal 0.0 - 0.2 10^3/mcL AO Workflow SS Basophils/100 WBC (Bld) 0.4 % Normal 0.0 - 2.5 % AO Workflow SS Eosinophil, Absolute 0.2 103/mcL Normal 0.0 - 0 .4 10^3/mcL AO Workflow SS Eosinophils/100 WBC (Bld) 1.6 % Normal 0.0 - 7.0 % AO Workflow SS Erythrocyte distribution width (RBC) [Ratio] 13.0 % Normal 11.5 - 14.5 % AO Workflow SS HCG Qn 1583.2 m[IU]/mL Invalid Interpretation Code AO ADM SS Comment on above: Interpretive Data: H CG Levels with Gestation age: 0.2- 1 week. . . . . . . . . . . . . . . 5 - 50 mIU/mL 1-2 weeks . . . . . . . . . . . . . . . 50 - 500 mIU/mL 2-3 weeks . . . . . . . . . . . . . . . 100 - 5,000 mIU/ml 3-4 weeks . . . . . . . . . . . . . . . 500 - 10,000 mIU/mL 4-5 weeks . . . . . . . . . . . . . . . 1,000 - 5,000 mIU/mL 5-6 weeks . . . . . . . . . . . . . . . 10,000 - 100,000 mIU/mL 6-8 weeks . . . . . . . . . . . . . . . 15,000 - 200,000 mIU/mL 2-3 months . . . . . . . . . . . . . . . 10,000 - 100,000 mIU/mL Hematocrit (Bld) [Volume fraction] 35.2 % Low 37.0 - 47.0 % AO Workflow SS Hemoglobin (Bld) [Mass/Vol] 11.8 G/dL Low 12.0 - 16.0 G/dL AO Workflow SS Lymphocyte, Absolute 2.8 103/mcL Normal 0.8 - 3 .9 10^3/mcL AO Workflow SS Lymphocytes/100 WBC (Bld) 27.8 % Normal 10.0 - 50.0 % AO Workflow SS MCH (RBC) [Entitic mass] 27.1 pg Normal 27.0 - 31.2 pg AO Workflow SS MCHC 33.4 G/dL Normal 33.0 - 37.0 G/dL AO Workflow SS MCV (RBC) [Entitic vol] 81.1 fL Normal 80.0 - 94.0 fL AO Workflow SS Monocyte distribution width Auto (Bld) [Entitic vol] 17.54 1 Normal 0.00 - 20.00 AO Workflow SS Comment on above: Result Comment: For ED adult patients suspected of sepsis, MDW<=20.0 does not rule out sepsis or risk of sepsis Monocyte, Absolute 0.8 103/mcL Normal 0.2 - 1.0 10^3/mcL AO Workflow SS Monocytes/100 WBC (Bld) 7.9 % Normal 1.7 - 13.0 % AO Workflow SS Neutrophil, Absolute 6.3 103/mcL High 2.9 - 6 .2 10^3/mcL AO Workflow SS Neutrophils/100 WBC (Bld) 62.3 % Normal 37.0 - 80.0 % AO Workflow SS Platelet mean volume (Bld) [Entitic vol] 8.1 fL Normal 7.4 - 10.4 fL AO Workflow SS Platelets (Bld) [#/Vol] 362 103/mcL Normal 130 - 400 10^3/mcL AO Workflow SS RBC (Bld) [#/Vol] 4.34 106/mcL Normal 4.20 - 5.4 0 10^6/mcL AO Workflow SS WBC (Bld) [#/Vol] 10.2 103/mcL Normal 4.6 - 10.8 10^3/mcL AO Workflow SS Absolute lymphocyte countOrd ered By: Pratima Bass on 08-04-2022 Lymphocytes Auto (Unsp spec) [#/Vol] 1.73 10*3/uL 0.83-4.51 [facility] Basophil percentageOrdered B y: Pratima Bass on 08-04-2022 Basophils/100 WBC (Bld) 0.4 % 0-1 [facility] Eosinophils/100 WBC (Bld) 0.8 % 0-3 [facility] Neutrophils (Bld) [#/Vol] 7.4 10*3/uL 2.0-7.7 [facility] Neutrophils/100 WBC (Bld) 75.7 % 34-64 [facility] WBC (Bld) [#/Vol] 9.8 10*3/uL 4.5-13.0 [facility] Blood erythrocytes count (nu mber/volume)Ordered By: Pratima Bass on 08-04-2022 RBC (Bld) [#/Vol] 4.38 10*6/uL 4.1-4.8 [facility] Blood hemoglobin measurement (mass/volume)Ordered By: Pratima Bass on 08-04-2022 Hemoglobin (Bld) [Mass/Vol] 12.3 g/dL 12.0-15.0 [facility] Blood lymphocytes/100 leukoc ytesOrdered By: Pratima Bass on 08-04-2022 Lymphocytes/100 WBC (Bld) 17.7 % 25-45 [facility] Blood monocytes/100 leukocyt esOrdered By: Pratima Bass on 08-04-2022 Monocytes/100 WBC (Bld) 5.0 % 3-6 [facility] Blood platelet mean volumeOr dered By: Pratima Bass on 08-04-2022 Platelet mean volume (Bld) [Entitic vol] 10.9 fL 6.2-12.0 [facility] CBC W/Diff, Automatedon 07-11 Absolute Lymph 1.73 X10 3/uL Normal 0.83-4.51 [facility] Comment on above: Performed By: #### L 100.0100, L700.5500 #### [facility] [address] [place], [address] Absolute Neut 7.4 X10 3/uL Normal 2.0-7.7 [facility] Comment on above: Performed By: #### L 100.0100, L700.5500 #### [facility] [address] [place], [address] Basophils/100 WBC (Bld) 0.4 % Normal 0-1 [facility] Comment on above: Performed By: #### L 100.0100, L700.5500 #### [facility] [address] [place], [address] Eosinophils/100 WBC (Bld) 0.8 % Normal 0-3 [facility] Comment on above: Performed By: #### L 100.0100, L700.5500 #### [facility] [address] [place], [address] Erythrocyte distribution width (RBC) [Ratio] 12.6 % Normal 11.6-14.6 [facility] Comment on above: Performed By: #### L 100.0100, L700.5500 #### [facility] [address] [place], [address] Hematocrit (Bld) [Volume fraction] 38.7 % Normal 37-46 [facility] Comment on above: Performed By: #### L 100.0100, L700.5500 #### [facility] [address] [place], [address] Hemoglobin (Bld) [Mass/Vol] 12.3 g/dL Normal 12.0-15.0 [facility] Comment on above: Performed By: #### L 100.0100, L700.5500 #### [facility] [address] [place], [address] IG% 0.400 Normal 0.0-0.9 [facility] Comment on above: Result Comment: IG% - Immature Granulocytes (promyelocytes, myelocytes and metamyelocytes) > 1% indicates that a LEFT SHIFT is Present. Performed By: #### L 100.0100, L700.5500 #### [facility] [address] [place], [address] Lymphocytes/100 WBC (Bld) 17.7 % Low 25-45 [facility] Comment on above: Performed By: #### L 100.0100, L700.5500 #### [facility] [address] [place], [address] MCH (RBC) [Entitic mass] 28.1 pg Normal 25.0-35.0 [facility] Comment on above: Performed By: #### L 100.0100, L700.5500 #### [facility] [address] [place], [address] MCHC (RBC) [Mass/Vol] 31.8 g/dL Low 32-36 [facility] Comment on above: Performed By: #### L 100.0100, L700.5500 #### [facility] [address] [place], [address] MCV (RBC) [Entitic vol] 88.4 fL Normal 78-96 [facility] Comment on above: Performed By: #### L 100.0100, L700.5500 #### [facility] [address] [place], [address] Monocytes/100 WBC (Bld) 5.0 % Normal 3-6 [facility] Comment on above: Performed By: #### L 100.0100, L700.5500 #### [facility] [address] [place], [address] Neutrophils/100 WBC (Bld) 75.7 % High 34-64 [facility] Comment on above: Performed By: #### L 100.0100, L700.5500 #### [facility] [address] [place], [address] Nucleated RBC (Bld) [#/Vol] 0 10*3/uL Normal 0-5 [facility] Comment on above: Performed By: #### L 100.0100, L700.5500 #### [facility] [address] [place], [address] Platelet mean volume (Bld) [Entitic vol] 10.9 fL Normal 6.2-12.0 [facility] Comment on above: Performed By: #### L 100.0100, L700.5500 #### [facility] [address] [place], [address] Platelets (Bld) [#/Vol] 378 10*3/uL Normal 150-450 [facility] Comment on above: Performed By: #### L 100.0100, L700.5500 #### [facility] [address] [place], [address] RBC (Bld) [#/Vol] 4.38 10*6/uL Normal 4.1-4.8 [facility] Comment on above: Performed By: #### L 100.0100, L700.5500 #### [facility] [address] [place], [address] RDW SD 41.2 fl Normal 35.1-43.9 [facility] Comment on above: Performed By: #### L 100.0100, L700.5500 #### [facility] [address] [place], [place], [id number] WBC (Bld) [#/Vol] 9.8 10*3/uL Normal 4.5-13.0 [facility] Comment on above: Performed By: #### L 100.0100, L700.5500 #### [facility] [address] [place], [place], [id number] Determination of erythrocyte mean corpuscular volume (MCV)Ordered By: Pratima Bass on 08-04-2022 MCV (RBC) [Entitic vol] 88.4 fL 78-96 [facility] Hematocrit Auto (Bld) [Volum e fraction]Ordered By: Pratima Bass on 08-04-2022 Hematocrit (Bld) [Volume fraction] 38.7 % 37-46 [facility] - Hematology and Cell countsOrdered By: Pratima Bass on 08-04-2022 Erythrocyte distribution width (RBC) [Entitic vol] 41.2 fL 35.1-43.9 [facility] Erythrocyte distribution width (RBC) [Ratio] 12.6 % 11.6-14.6 [facility] Immature granulocytes/100 WBC (Bld) 0.400 % 0.0-0.9 [facility] Comment on above: IG% - Immature Granu locytes (promyelocytes, myelocytes and metamyelocytes) > 1% indicates that a LEFT SHIFT is Present. MCH (RBC) [Entitic mass] 28.1 pg 25.0-35.0 [facility] Nucleated RBC/100 WBC (Bld) [Ratio] 0 % 0-5 [facility] MCHC Auto (RBC) [Mass/Vol]Or dered By: Pratima Bass on 08-04-2022 MCHC (RBC) [Mass/Vol] 31.8 g/dL 32-36 [facility] [place] 08-04-2022 Monocytes (Bld) [#/Vol] Negative Normal Negative [facility] Comment on above: Performed By: #### L 100.0100, L700.5500 #### [facility] [address] [place], [place], [address] Platelets bldOrdered By: Shyla Bass on 08-04-2022 Platelets (Bld) [#/Vol] 378 10*3/uL 150-450 [facility] Serum heterophile antibody d etectionOrdered By: Pratima Bass on 08-04-2022 Heterophile Ab Ql (S) Negative Negative [facility] CORONAVIRUS PCR - [facility] 09-23-2020 SARS-CoV-2 (COVID-19) RNA EZE+probe Ql (Unsp spec) Negative Normal NORMAL: NEGATIVE [facility] Comment on above: Performed By: #### 2 [id number] #### [facility],[address] [place] [id number] SEND TO ? YES Normal [facility] Comment on above: Result Comment: RESU LTS FAXED TO INFECTION CONTROL. SARS-CoV-2 THIS TEST IS BEING USED UNDER THE FDA EUA PROCEDURE. THIS ASSAY HAS BEEN VALIDATED IN THE [facility] FOR USE WITH NASOPHARYNGEAL SPECIMENS IN [facility] [place]. INTERPRETIVE DATA LABORATORY TEST RESULTS SHOULD ALWAYS BE CONSIDERED IN THE CONTEXT OF CLINICAL OBSERVATIONS AND EPIDEMIOLOGICAL DATA IN MAKING FINAL DIAGNOSIS AND PATIENT MANAGEMENT DECISIONS. PATIENT MANAGEMENT SHOULD FOLLOW CURRENT CDC GUIDELINES. A POSITIVE TEST RESULT FOR COVID-19 INDICATES THAT RNA FROM SARS-CoV-2 WAS DETECTED, AND THE PATIENT IS INFECTED WITH THE VIRUS AND PRESUMED TO BE CONTAGIOUS. A NEGATIVE TEST RESULT FOR THIS TEST MEANS THAT SARS-CoV-2 RNA WAS NOT PRESENT IN THE SPECIMEN ABOVE THE LIMIT OF DETECTION. HOWEVER, A NEGATVIE RESULT DOES NOT RULE OUT COVID-19 AND SHOULD NOT BE USED THE SOLE BASIS FOR TREATMENT OR PATIENT MANAGEMENT DECISIONS. A NEGATIVE RESULT DOES NOT EXCLUDE THE POSSIBILITY OF COVID-19. WHEN DIAGNOSTIC TESTING IS NEGATIVE, THE POSSIBLILTY OF A FALSE NEGATIVE RESULT SHOULD BE CONSIDERED IN THE CONTEXT OF A PATIENT'S RECENT EXPOSURES AND THE PRESENCE OF CLINICAL SIGNS AND SYMPTOMS CONSISTENT WITH COVID-19. THE POSSIBILITY OF A FALSE NEGATIVE RESULT SHOULD ESPECIALLY BE CONSIDERED IF THE PATIENT'S RECENT EXPOSURES OR CLINICAL PRESENTATION INDICATE THAT COVID-19 IS LIKELY, AND DIAGNOSTIC TESTS FOR OTHER CAUSES OF ILLNESS (e.g., OTHER RESPIRATORY ILLNESS) ARE NEGATIVE. IF COVID-19 IS STILL SUSPECTED BASED ON EXPOSURE HISTORY TOGETHER WITH OTHER CLINICAL FINDINGS, RE-TESTED SHOULD BE CONSIDERED BY HEALTHCARE PROVIDERS IN CONSULTATION WITH PUBLIC HEALTH AUTHORITIES. Performed By: #### 2 [id number] #### [facility],[address] [facility] [address] Vital Signs Date Time Vital Sign Value Performing Clinician Facility 02-17-2023 23:21-0500 Body height 172.[address] ANTONIO VALDIVIA DO [facility] 02-17-2023 23:21-0500 Body temperature 97.34 [degF] DR ANTONIO VALDIVIA DO [facility] 02-17-2023 23:21-0500 Body weight 72.[address] ANTONIO VALDIVIA DO [facility] 02-17-2023 23:21-0500 Diastolic Blood Pressure Non-Invasive 79 mm[Hg] DR ANTONIO VALDIVIA DO [facility] 02-17-2023 23:21-0500 Heart rate 89 /min DR ANTONIO VALDIVIA DO [facility] 02-17-2023 23:21-0500 Height ZScore 1.[address] ANTONIO VALDIVIA DO [facility] Comment on above: Result Comment: ^~:!ZScore Source -[facility] 02-17-2023 23:21-0500 Percent Height for Age 92.75 % DR ANTONIO VALDIVIA DO [facility] Comment on above: Result Comment: ^~:!Percentile Source -[facility] 02-17-2023 23:21-0500 Respiratory rate 20 /min DR ANTONIO VALDIVIA DO [facility] 02-17-2023 23:21-0500 Systolic Blood Pressure Non-Invasive 138 mm[Hg] DR ANTONIO VALDIVIA DO [facility] Encounters Encounter Date Encounter Type Care Provider Facility Start: 03-13-2024 End: 03-13-[address] DECLINED Facility:[facility] Start: 03-03-2024 End: 03-03-[address] DECLINED Facility:[facility] Start: 01-16-2024 End: 01-19-2024 Evaluation and management of inpatient DR DECLINED Facility:[facility] Start: 01-09-2024 End: 01-09-2024 ambulatory NONE NONE Facility:[facility] Start: 12-25-2023 End: 12-25-2023 ambulatory NONE NONE Facility:[facility] Start: 12-20-2023 End: 04-11-[address] DECLINED Facility:[facility] Start: 11-21-2023 End: 11-21-[address]~[id number] Facility:[facility] Start: 11-13-2023 End: 11-13-[address] DECLINED Facility:[facility] Start: 10-29-2023 End: 10-29-2023 ambulatory NONE NONE Facility:[facility] Start: 10-05-2023 End: 10-05-2023 ambulatory NONE NONE Facility:[facility] Start: 09-24-2023 End: 09-24-[address]~[id number] ARELIS FOX MD Facility:[facility] Start: 09-19-2023 End: 09-19-[address]~[id number] ARELIS FOX MD Facility:[facility] Start: 02-23-2023 End: 02-24-[address] ANTONIO VALDIVIA DO Facility:A Start: 02-18-2023 End: 02-18-2023 Emergency department patient visit NOT RECORDED PHYSICIAN Facility:B Start: 02-17-2023 End: 02-18-2023 Emergency department patient visit DR ANTONIO VALDIVIA DO [facility] Start: 08-04-2022 End: 08-04-2022 Patient encounter procedure [facility] Reyna [facility] Start: 08-04-2022 End: 08-04-2022 ambulatory Pratima Bass Facility:[facility] Start: 09-22-2020 End: 09-22-[address] MICKEY GONZALEZ [facility] Payers Date Payer Category Payer Self-pay 2003 Unknown [id number] 2.16.8 [id number] 2003 Unknown [id number] 2.16.8 [id number] 2003 Unknown [id number] 2.16.8 [id number] 2003 Unknown [id number] 2.16.8 [id number] 2003 Unknown [id number] 2.16.8 [id number] 2003 Unknown [id number] 2.16.8 [id number] 2003 Unknown [id number] 2.16.8 [id number] 2003 Unknown [id number] 2.16.8 [id number] 2003 Unknown [id number] 2.16.8 [id number] 2003 Unknown [id number] 2.16.8 [id number] 2003 Unknown [id number] 2.16.8 [id number] 2003 Unknown [id number] 2.16.8 [id number] 2003 Unknown [id number] 2.16.8 [id number] 2003 Unknown [id number] 2.16.8 [id number] 1980 Unknown [id number] 2.16.84 [id number] 1959 Unknown [id number] Unknown [id number] Unknown [id number] 2.16.8 [id number] Social History Date Type Detail Facility [facility]: [facility] Start: 2005 Sex Assigned At Female [facility] Tobacco smoking status No Smokin g Status Entered [facility] Functional Status Date Assessment Result Facility 02-18-2023 Functional Status Independent [facility] Mental Status Date Assessment Result Facility 02-18-2023 Mental Status Orientation Oriented x 4 [facility] Clinical Note 03-03-2024 Note Date & Type Note Facility 03-03-2024 Note PROCEDURE: ULTRASOUN D PELVIS WITH TRANSVAGINAL VIEWS, 03/03/2024 10:03 AM EST CLINICAL INDICATIONS: Abnormal uterine bleeding unrelated to menstrual cycle. 6.5 weeks . 2 para 1 AB 1. COMPARISON: None. TECHNIQUE: Transabdominal, transvaginal pelvic sonogram, park-scale, color evaluation. FINDINGS: Uterus: 8.9 x 5.2 x 4.5 cm. The endometrial echo complex measures 0.3 cm. Trace fluid in the endocervical canal is seen. Normal uterine sonographic morphology. Focal abnormality is not evident. No abnormal vascular pattern is seen. Mild free fluid in the cul-de-sac noted. Right ovary: 3.9 x 1.6 x 2.4 cm, volume 8 mL. Subcentimeter follicles identified, normal sonographic morphology. Left ovary: 4.0 x 1.3 x 2.1 cm, volume 6 mL. Normal sonographic morphology. DUPLEX PELVIC VASCULATURE: There is intact flow within the ovarian tissue bilaterally by color-flow assessment. Arterial and venous spectral tracing is identified from within. Right resistive index 0.58, left 0.60. IMPRESSION: 1. Normal uterine and bilateral ovarian sonographic morphology. 2. No sign of retained products of conception. 3. Mild pelvic free fluid. [facility] Clinical Note 01-08-2024 Note Date & Type Note Facility 01-08-2024 Note PROCEDURE: US LIMITED PORTABLE, 01/08/2024 10:17 AM EDT CLINICAL INDICATIONS: Encounter for third trimester , oligohydramnios, amniotic fluid assessment. 2 para 0 AB 1 Expected gestational age: 38 weeks 0 days Expected LINDA: 01/22/2024 COMPARISON: 02/01/2024 TECHNIQUE: Limited third trimester obstetric sonogram, grayscale, color evaluation. FINDINGS: A single living intrauterine is identified with cephalic presentation. body, cardiac activity noted, heart rate 148 bpm. Anterior placenta, no sign of previa or hemorrhage demonstrated. Amniotic fluid index 8.2 cm, maximum vertical pocket 3.3 cm. biometry: Not performed. anatomic assessment: Not performed. Maternal adnexa pathology is not demonstrated. IMPRESSION: 1. Single living intrauterine , cephalic presentation 2. Amniotic fluid index 8.2 cm, maximum vertical pocket 3.3 cm. 3. Anterior placenta, no previa or hemorrhage [facility] Clinical Note 01-01-2024 Note Date & Type Note Facility 01-01-2024 Note PROCEDURE: ULTRASOUN D LIMITED, 01/01/2024 1:57 PM EDT CLINICAL INDICATIONS: Oligohydramnios, amniotic fluid index, encounter for third trimester , fluid assessment 2 para 0 AB 1 Expected gestational age: 37 weeks 0 days Expected LINDA: 01/22/2024 COMPARISON: 12/24/2023 TECHNIQUE: Limited third trimester obstetric sonogram, amniotic fluid assessment FINDINGS: Single living intrauterine identified with cephalic presentation. body, cardiac activity is seen. Heart rate 141 bpm. Amniotic fluid index 12.4 cm, maximum vertical pocket 5.8 cm. Anterior placenta, no previa or hemorrhage. biometry: Not performed. anatomic assessment: Not performed. No maternal adnexal pathology demonstrated. IMPRESSION: 1. Single living intrauterine , cephalic presentation 2. Anterior placenta, no previa or hemorrhage 3. Normal amniotic fluid index, 12.4 cm, maximum vertical pocket 5.8 cm. [facility] Clinical Note 12-24-2023 Note Date & Type Note Facility 12-24-2023 Note PROCEDURE: ULTRASOUN D LIMITED, 12/24/2023 10:36 AM EDT CLINICAL INDICATIONS: Oligohydramnios, Limited third trimester obstetric sonogram, amniotic fluid index 2, para 0, AB 1 Expected gestational age: 35 weeks 6 days Expected LINDA: 01/22/2024 COMPARISON: 11/21/2023 TECHNIQUE: Limited third trimester obstetric sonogram, amniotic fluid assessment. Grayscale, color evaluation. FINDINGS: Single living intrauterine identified, cephalic presentation. body, cardiac activity, heart rate 152 bpm. Anterior placenta, no previa or hemorrhage. Amniotic fluid index 9.1 cm, maximum vertical pocket 3.1 cm. biometry: Not performed. anatomic assessment: Not performed. No maternal adnexal pathology demonstrated. IMPRESSION: 1. Single living intrauterine , cephalic presentation 2.Anterior placenta, no previa or hemorrhage 3. 9.1 cm amniotic fluid index, maximal vertical pocket 3.1 cm. [facility] Clinical Note 09-25-2023 Note Date & Type Note Facility 09-25-2023 Note PROCEDURE: ULTRASOUN D 2ND OR 3RD TRIMESTER, ULTRASOUND TRANSVAGINAL OB, 09/24/2023 1:54 PM EDT. INDICATIONS: Encounter for second trimester , anatomic assessment. Transvaginal evaluation of cervix in . 2, para 0, AB 1. COMPARISON: None FINDINGS: EVALUATION Number of Fetuses : 1 Presentation: Cephalic Heart Rate: 153 bpm. Placenta: Anterior, grade 0, no previa. Placenta cord insertion appropriate. LOPEZ: 13.5 cm CERVIX LENGTH: 3.3 cm by transvaginal assessment, closed. GESTATIONAL AGE: Provided gestational age: 22 weeks 6 days Provided LINDA: 01/22/2024 Sonographic gestational age: 22 weeks 5 days +/- 1 week 4 days Sonographic LINDA: 01/23/2024 BIOMETRY: BPD: 5.3 cm, 22 weeks 0 days, 17th percentile. HC: 20.4 cm, 22 weeks 3 days, 22nd percentile. AC: 17.7 cm, 22 weeks 4 days, 33rd percentile. FL: 4.2 cm, 23 weeks 6 days, 70th percentile. Estimated weight 555 g +/- 83 g. 50 percentile Growth ratios:appropriate CI: 71.6 FL/BPD: 80.3 HC/AC: 1.15 FL/AC: 23.9 FL/HC: 20.78, normal range 19.0-20.6. ANATOMY: HEAD, FACE, NECK: Lateral ventricle: Normal Appearance Choroid plexus: Normal Appearance Midline falx: Normal Appearance Cavum: Normal Appearance Cerebellum: Normal Appearance Cisterna Magna: Normal Appearance Facial features: Normal Appearance CHEST: 4 chamber heart: Normal Appearance LVOT/RVOT: Normal Appearance Diaphragm: Normal appearance ABDOMEN: Stomach: Normal Appearance Abdominal situs: Normal Appearance Kidneys: Normal Appearance Bladder: Normal Appearance Cord insertion: Normal Appearance Cord: 3 vessels Spine: Normal Appearance EXTREMITIES: Lower Extremities: Normal Appearance Upper Extremities: Normal Appearance MATERNAL FINDINGS: No maternal adnexal abnormality. IMPRESSION: 1. Living intrauterine , cephalic presentation. 2. Composite sonographic age 22 weeks 5 days +/- 1 week 4 days. 3. Estimated weight 555 g, 50 percentile, growth ratios appropriate. 4. No sonographic anatomic abnormalities demonstrated. 5. 3.3 cm transvaginal cervical length, closed. [facility] Clinical Note 09-25-2023 Note Date & Type Note Facility 09-25-2023 Note PROCEDURE: ULTRASOUN D 2ND OR 3RD TRIMESTER, ULTRASOUND TRANSVAGINAL OB, 09/24/2023 1:54 PM EDT. INDICATIONS: Encounter for second trimester , anatomic assessment. Transvaginal evaluation of cervix in . 2, para 0, AB 1. COMPARISON: None FINDINGS: EVALUATION Number of Fetuses : 1 Presentation: Cephalic Heart Rate: 153 bpm. Placenta: Anterior, grade 0, no previa. Placenta cord insertion appropriate. LOPEZ: 13.5 cm CERVIX LENGTH: 3.3 cm by transvaginal assessment, closed. GESTATIONAL AGE: Provided gestational age: 22 weeks 6 days Provided LINDA: 01/22/2024 Sonographic gestational age: 22 weeks 5 days +/- 1 week 4 days Sonographic LINDA: 01/23/2024 BIOMETRY: BPD: 5.3 cm, 22 weeks 0 days, 17th percentile. HC: 20.4 cm, 22 weeks 3 days, 22nd percentile. AC: 17.7 cm, 22 weeks 4 days, 33rd percentile. FL: 4.2 cm, 23 weeks 6 days, 70th percentile. Estimated weight 555 g +/- 83 g. 50 percentile Growth ratios:appropriate CI: 71.6 FL/BPD: 80.3 HC/AC: 1.15 FL/AC: 23.9 FL/HC: 20.78, normal range 19.0-20.6. ANATOMY: HEAD, FACE, NECK: Lateral ventricle: Normal Appearance Choroid plexus: Normal Appearance Midline falx: Normal Appearance Cavum: Normal Appearance Cerebellum: Normal Appearance Cisterna Magna: Normal Appearance Facial features: Normal Appearance CHEST: 4 chamber heart: Normal Appearance LVOT/RVOT: Normal Appearance Diaphragm: Normal appearance ABDOMEN: Stomach: Normal Appearance Abdominal situs: Normal Appearance Kidneys: Normal Appearance Bladder: Normal Appearance Cord insertion: Normal Appearance Cord: 3 vessels Spine: Normal Appearance EXTREMITIES: Lower Extremities: Normal Appearance Upper Extremities: Normal Appearance MATERNAL FINDINGS: No maternal adnexal abnormality. IMPRESSION: 1. Living intrauterine , cephalic presentation. 2. Composite sonographic age 22 weeks 5 days +/- 1 week 4 days. 3. Estimated weight 555 g, 50 percentile, growth ratios appropriate. 4. No sonographic anatomic abnormalities demonstrated. 5. 3.3 cm transvaginal cervical length, closed. [facility] Discharge instructions 02-18-2023 Note Date & Type Note Facility 02-18-2023 Hospital Discharg e instructions Patient Education 02/18/2023 00:44:15 Possible Miscarriage (Threatened ) Possible Miscarriage (Threatened ) You may be having a miscarriage. Common signs of a miscarriage are pain and bleeding. A small amount of bleeding can be normal during the first 3 months of . Often the pain and bleeding stop, and you have a normal and baby. But heavy bleeding or severe cramping can be an early sign of miscarriage. A miscarriage means an unexpected loss of your . At this time, your healthcare provider doesn t know whether you will have a miscarriage, or if things will clear up and your will continue normally. This can be emotionally difficult. There is little that can be done to change the way you feel. But understand that miscarriages are common. About 1 or 2 out of every [address] Some even end before you know you are . This happens for a number of reasons, and usually the cause is never known. It s important you know that it is not your fault. It didn t happen because you did anything wrong. Having sex or exercising does not cause a miscarriage. These activities are usually safe unless you have pain or bleeding or your doctor tells you to stop. Even minor falls won t cause a miscarriage. Miscarriages happen because things were not developing as they were supposed to. No medicine can prevent a miscarriage. Again, understand that things are uncertain right now. You may still have some bleeding. This may be light spotting or like a period, and you may pass some tissue. You may have some cramping. This is why follow-up care is important. Home care To improve the chance of keeping your , you should take these steps: Rest in bed until the pain and bleeding stop. Don t have sex until your healthcare provider says it s OK. Use sanitary napkins instead of tampons. Don t douche. Don t take aspirin, ibuprofen, or naproxen. Don t have alcoholic or caffeinated beverages or smoke. Follow-up care Make an appointment with your doctor within the next week, or as directed. If you had an ultrasound, a radiologist will review it. You will be told of any new findings that may affect your care. Call 911 Call 911 if you have: Severe pain and very heavy bleeding Severe lightheadedness, passing out, or fainting Rapid heart rate Difficulty breathing Confusion or difficulty waking up When to seek medical advice Call your healthcare provider right away if any of these occur: Vaginal bleeding or pain that lasts for more than 3 days Heavy bleeding. This means soaking 1 new pad an hour over 3 hours. Fever of 100.4 F (38 C) or higher, or as directed by your healthcare provider Pain in your lower belly (abdomen) that gets worse Weakness or dizziness Passage of anything that resembles tissue. This would be pink or grayish membrane or solid material. Save the tissue in a clean container and bring it to your provider. 8840-3964 [employer]. [address] [place] [address], [place] [address]. All rights reserved. This information is not intended as a substitute for professional medical care. Always follow your healthcare professional's instructions. Follow Up Care 02/17/2023 22:40:00 With:OB, OB CLINIC Address: [address] [place] [address]- When:2-4 days With:RAFFI CHAMBERS DO Address: [address] [place] [address] [address] [place] [phone] When:2-4 days With:Follow up with primary care provider Address:Unknown When:2-4 days [facility] Clinical Note 02-18-2023 Note Date & Type Note Facility 02-18-2023 Note Discharge Instructions Thank you for allowing [place] to assist you with your healthcare needs. The following is important discharge information regarding your hospital visit. Diagnosis from Today's Visit Vaginal bleeding What to Do Next Instructions from Your Care Team No qualifying data available. Post Acute Orders No qualifying data available. You Need to Schedule the Following Appointments Follow Up with OB, OB CLINIC When Within 2-4 days Where: [address] [place] [address]- Follow Up with RAFFI CHAMBERS DO When Within 2-4 days Where: [address] [place] [address] [address] [place] [phone] Follow Up with Follow up with primary care provider When Within 2-4 days Allergies No active allergies Medications Please ask your primary doctor or pharmacist before taking any other medication not listed, including over the counter drugs, herbal medications, vitamins and or supplements as they may interact with your home medications. Please take this list to your next doctor s visit. Bring all medications you take, including over the counter medications, herbals and other supplements with you to your doctor s visit. Patients and families are reminded to discard old lists and to update any records with all medication providers or retail pharmacies. Education Materials Possible Miscarriage (Threatened ) You may be having a miscarriage. Common signs of a miscarriage are pain and bleeding. A small amount of bleeding can be normal during the first 3 months of . Often the pain and bleeding stop, and you have a normal and baby. But heavy bleeding or severe cramping can be an early sign of miscarriage. A miscarriage means an unexpected loss of your . At this time, your healthcare provider doesn t know whether you will have a miscarriage, or if things will clear up and your will continue normally. This can be emotionally difficult. There is little that can be done to change the way you feel. But understand that miscarriages are common. About 1 or 2 out of every [address] Some even end before you know you are . This happens for a number of reasons, and usually the cause is never known. It s important you know that it is not your fault. It didn t happen because you did anything wrong. Having sex or exercising does not cause a miscarriage. These activities are usually safe unless you have pain or bleeding or your doctor tells you to stop. Even minor falls won t cause a miscarriage. Miscarriages happen because things were not developing as they were supposed to. No medicine can prevent a miscarriage. Again, understand that things are uncertain right now. You may still have some bleeding. This may be light spotting or like a period, and you may pass some tissue. You may have some cramping. This is why follow-up care is important. Home care To improve the chance of keeping your , you should take these steps: Rest in bed until the pain and bleeding stop. Don t have sex until your healthcare provider says it s OK. Use sanitary napkins instead of tampons. Don t douche. Don t take aspirin, ibuprofen, or naproxen. Don t have alcoholic or caffeinated beverages or smoke. Follow-up care Make an appointment with your doctor within the next week, or as directed. If you had an ultrasound, a radiologist will review it. You will be told of any new findings that may affect your care. Call 911 Call 911 if you have: Severe pain and very heavy bleeding Severe lightheadedness, passing out, or fainting Rapid heart rate Difficulty breathing Confusion or difficulty waking up When to seek medical advice Call your healthcare provider right away if any of these occur: Vaginal bleeding or pain that lasts for more than 3 days Heavy bleeding. This means soaking 1 new pad an hour over 3 hours. Fever of 100.4 F (38 C) or higher, or as directed by your healthcare provider Pain in your lower belly (abdomen) that gets worse Weakness or dizziness Passage of anything that resembles tissue. This would be pink or grayish membrane or solid material. Save the tissue in a clean container and bring it to your provider. 4696-5476 [employer]. [address] [place] [address], [place] [address]. All rights reserved. This information is not intended as a substitute for professional medical care. Always follow your healthcare professional's instructions. Additional Information VACCINATE! IT SAVES LIVES! Members of the community who have not yet received the COVID-19 vaccine and would like to receive it can visit one of [facility] vaccine clinics. There are many vaccine clinic locations within the [facility]. For locations and available times, please visit [email or web address] It is important to note that some COVID mobile vaccine clinics are held outdoors and may be canceled in rainy or stormy conditions. To learn more about pediatric vaccinations (ages 5-11), we invite you to visit the [email or web address] [facility] webpage. [email or web address] -Questions.html To learn more about the COVID-19 vaccine, we invite you to visit the CDC website for a list of frequently asked questions. https://www.cdc.gov/coronavirus/2019-n cov/vaccines/faq.html [facility] Patient Portal Access Instructions: Stay connected with your healthcare team and access your personal medical information anytime with the [facility] Patient Portal. If you would like a full copy of your medical records please contact the [facility] Medical Records Department Sunday through Sunday between 8a.m. and 4:30p.m. Please follow the directions below to access the portal: 1.Access the email account you provided upon registration to the hospital.2.Look for an invitation email from [facility].3.Open the email and access the invitation link: Accept Invitation to [facility]4.Fill in the required hernandez to create your account. Sign into [email or web address] with your username and password that you created in the above steps to stay up to date. You can then view a summary of results, a summary of your visits, and the ability to download your summaries to your computer or send the information securely to a physician. Remember that your healthcare information is confidential, so carefully consider who you will allow to register on the [facility] Patient Portal for access to your information. You can also access the [facility] Patient Portal on the [employer]. Simply click on Health Records under Health Data and then click on the [employer] logo. HOW TO SAFELY DISPOSE OF PRESCRIPTION MEDICATIONS Please use one of the following methods to safely dispose of your unused medications. 1.Use a drug disposal kit: the drug disposal pouch allows you to safely discard your old and unused drugs. Ask your nurse to give you one when you are discharged.2.Visit a local take-back location: Many local pharmacies and police departments have programs that collect old and unwanted prescription drugs. Call your local pharmacy or go to http://[employer].LikeBright/8G3Th3l to find one close to you.3.Make use of household items: Use cat litter or old coffee grounds to dispose medications if other options are not available. Mix your drugs with these household products, seal them in an airtight container and throw it into the garbage. Call [facility]: [phone] to be sure your drugs can be disposed of in this way. Some medicines may require a different approach.4.Never flush your medications down the toilet. IF YOU HAVE BEEN PRESCRIBED AN OPIOIDS FOR PAIN If you have been prescribed an opioid (such as hydrocodone, oxycodone or morphine), it is critical to understand the possible side effects and risks of opioid pain medications. Even when taken as directed, opioids can have several side effects including: Tolerance, meaning you might need to take more of a medication for the same pain relief. Nausea, vomiting and/or constipation. Sleepiness, dizziness, dry mouth, confusion, depression or itching. Physical dependence, meaning you have withdrawal symptoms when a medication is stopped ? this can develop within a few days. KNOW YOUR RESPONSIBILITIES It is important to know exactly how much and how often to take the opioid pain medications you are prescribed. Never take opioids in higher amounts or more often than prescribed. Do not combine opioids with alcohol or other drugs that cause drowsiness, such as benzodiazepines, also known as benzos, including diazepam and alprazolam, muscle relaxants or sleep aids. Never sell or share prescription opioids. This is illegal. Store opioids in a secure place and out of reach of others (including children, family, friends and visitors). The last page(s) of this document has been signed and retained as a CHART COPY Signatures Patient Education Materials Possible Miscarriage (Threatened ) Medication Leaflets My discharge plan and instructions have been reviewed and explained to me and I,JOELLE GREER understand my current condition and have read and understand these discharge instructions. I have received a written copy of the plan/instructions. If I have questions, I am aware that I should contact my doctor. Patient/Lodge Officer Signature: _ Date/Time: Relationship to Patient: Witness Name/Signature: Date/Time: [facility] Evaluation + Plan note Note Date & Type Note Facility Evaluation + Plan note No data available for this section [facility] Evaluation note Note Date & Type Note Facility Evaluation note [facility] Summary Purpose Family History No Family History Records FoundNo Family History Records Found No data available for this section No Family History Records FoundNo Family History Records Found Advance Directives No Advanced Directives Records FoundNo Advanced Directives Records FoundNo Advanced Directives Records FoundNo Advanced Directives Records Found Additional Source Comments INFORMATION SOURCE (unrecogn ized section and content) DATE CREATED AUTHOR 10/02/2020 [facility] DATE CREATED AUTHOR AUTHOR'S ORGANIZ ATION 08/19/2022 [facility] DATE CREATED AUTHOR AUTHOR'S ORGANIZ ATION 02/27/2023 [facility] ([place]) DATE CREATED AUTHOR AUTHOR'S ORGANIZ ATION 04/14/2024 [facility] osp[facility] Care Teams (unrecognized sec tion and content) Team Status: Active Member Role Status Dates Dr. Bobo Cook MD Family Provider Active JAMILAH Starks Primary Care Provider Active Team Status: Inactive Member Role Status Dates JAMILAH Starks Primary Care Provide r, Attending Provider, Referring Provider Active Goals (unrecognized section and content) Goals may be documented in a n alternate section No data available for this section FOR RECORDS PERTAINING TO PATIENTS WHO ARE OR HAVE BEEN ENROLLED IN A CHEMICAL DEPENDENCY/SUBSTANCEABUSE PROGRAM, SOME INFORMATION MAY BE OMITTED. This clinical summary was aggregated from multiple sources. Caution should be exercised in using it in the provision of clinical care. This summary normalizes information from multiple sources, and as a consequence, information in this document may materially change the coding, format and clinical context of patient data. In addition, data may be omitted in some cases. CLINICAL DECISIONS SHOULD BE BASED ON THE PRIMARY CLINICAL RECORDS. [facility]. provides no warranty or guarantee of the accuracy or completeness of information in this document.
[2024-09-10] MEDS: Ketorolac 30 MG/ML Syringe IV (04:27)
[2024-09-10] MEDS: 0.9% Normal Saline (1000mL) 1,000 ML 999 ML IV (04:27)
[2024-09-10 04:36] LABS: Hematocrit 34.7 % (37-47); Hemoglobin 11.2 g/dL (12.0-15.0); Immature Granulocytes Count 0.040 X10^3/uL (0.0-0.0); Mean Corp Hgb Conc 32.3 g/dL (32-36); Mean Corpuscular Volume 77.6 fL (81-99); Mean Platelet Vol. 10.2 fl (6.2-12.0); NRBC Flagged by Analyzer 0 % (0-5); Platelet Count 348 K/mm3 (150-450); RBC Distribution Width CV 15.1 % (11.6-14.6); RBC Distribution Width SD 42.4 fl (35.1-43.9); Red Blood Count 4.47 M/mm3 (4.2-5.4); White Blood Count 12.9 K/mm3 (4.4-11.0)
[2024-09-10 05:26] LABS: AST(SGOT) 19 U/L (<=31); Alanine Aminotransfer ALT/SGPT 18 U/L (<=34); Albumin, Serum 4.2 g/dL (3.5-5.0); Alkaline Phosphatase 56 U/L (35-104); Anion Gap 12 (5-15); BUN 16 mg/dL (4-19); BUN/Creat Ratio 21.9 RATIO (10-20); Bilirubin, Direct 0.12 mg/dL (0.00-0.30); Calcium,Total 9.1 mg/dL (7.6-11.0); Carbon Dioxide 22.6 mmol/L (21.0-32.0); Chloride 103 mmol/L (98-108); Estimated Creatinine Clearance 160.03 ml/min (50-250); Globulin 3.1 g/dL (2.2-4.2); Glucose 100 mg/dL (70-99); Lipase 14 U/L (13-75); Potassium 3.9 mmol/L (3.3-5.1)
[2024-09-10 05:47] LABS: Mucous, Urine 0 SEEN /hpf (<or=2+); Red Blood Cells-Urine 0 SEEN /hpf (0-5)
[2024-09-10 05:48] VITALS: BP 111/64; PULSE 66; RESP 18; O2SAT 98
[2024-09-10 05:59] LABS: Color, Urine Yellow (Yellow); Glucose, Dipstick Normal (Normal); Ketone-Dipstick Negative (Negative); Leukocyte Esterase-Dipstick Negative /ul (Negative); Nitrite-Dipstick Negative (Negative); Occult Blood-Urine 10 /ul (Negative); Protein-Dipstick 15 mg/dl (Negative); Specific Gravity, Urine 1.015 (1.002-1.030); Urine Bilirubin Dipstick Negative (Negative)
[2024-09-10 06:22] LABS: Internal QC Validated? YES +Cl - CLEAR BKGD; Pregnancy, Urine Negative Negative; Record Kit Lot#,Urine Preg 0000947241; Squamous Epithelial Cells - UA 0-5 SEEN /hpf (5-10)
--- NOTE | 2024-09-10 06:30 | US_ITS ---
PROCEDURE: TRANSVAGINAL NON- 09/10/2024 REASON FOR EXAM: PELVIC PAIN TECHNIQUE: TRANSVAGINAL NON- COMPARISON: None. FINDINGS: Measurements: Uterus: 8.9 x 5.8 x 4.0 cm with a volume of 123 mL Endometrial Thickness: 11.4 mm Right Ovary: 6.8 x 4.1 x 4.6 cm with a volume of 65.6 mL. Left Ovary: 4.7 x 2.0 x 1.8 with a volume of 8.7 mL. Incidental note is made of nabothian cysts. Uterus: Anteverted. Normal size, myometrial echotexture, and contour. Endometrium: Unremarkable. Right ovary: A right ovarian hemorrhagic cyst is seen, measured at 4.5 x 3.6 x 4.0 cm. Normal blood flow is seen within the right ovary. Left ovary: Normal size and echotexture. Normal blood flow is seen within the left ovary. Other: A moderately large amount of free fluid is seen within the cul-de-sac. US/Transvaginal Non- IMPRESSION: 1. Hemorrhagic right ovarian cyst. 2. Moderately large amount of free fluid within the cul-de-sac Reading Location: [place] [address]
[2024-09-10 07:00] VITALS: BP 128/64; PULSE 78; RESP 16; O2SAT 98
--- NOTE | 2024-09-10 08:07 | EDS_ITS ---
HPI History of Present Illness Chief Complaint: Abd Pain Informant: patient and spouse/S.O. Narrative Narrative: Patient is a 18-year-old female with no significant past medical history. She states she went to bed normally and then awoke with sudden onset of sharp pain in the lower abdomen/right lower quadrant. She states that secondary to the sudden onset severity of pain she was concerned for potential infection and called EMS to be brought in for evaluation. She states by the time she has arrived to the ER the pain has lessened greatly without any medication. She states that she has not had fevers chills nausea vomiting diarrhea or dysuria. She denies any concern for or STD. However as she does not know why the pain suddenly came on she presents for evaluation [facility] Medical History (Updated 09/10/24 @ 08:[address] Otis Anna, ) Vaginal delivery Home Medications ?Medication ?Instructions ?Recorded ?Last Taken ?Type ondansetron 4 mg disintegrating 4 mg PO TID PRN nausea and 09/10/24 Unknown Rx tablet vomiting #21 tabs oxycodone-acetaminophen 5 mg-325 1 tab PO Q6H PRN pain 3 days #12 09/10/24 Unknown Rx mg tablet (Percocet) tabs Allergy/AdvReac Type Severity Reaction Status Date / Time No Known Allergies Allergy Verified 09/10/24 03:49 Social History (Updated 11/19/19 @ 16:[address] Frank Hutchinson DO) Smoking Status: Never smoker ROS ROS ED Constitutional Constitutional ED: Denies chills or fever(s) ENT ENT ED: Denies sore throat Cardiovascular Cardiovascular: Denies chest pain Respiratory/Chest Respiratory/Chest: Denies cough or dyspnea Gastrointestinal Gastrointestinal: Reports abdominal pain; Denies diarrhea, nausea or vomiting Genitourinary Genitourinary ED: Denies dysuria or hematuria Musculoskeletal Musculoskeletal: Denies back pain Integumentary Denies rash Neurologic Neurologic: Denies headache(s) Hematologic/Lymphatic Hematologic/Lymphatic: Denies easy bleeding or easy bruising EXAM Physical Exam Const Vital Signs: 09/10/24 03:48 09/10/24 05:48 09/10/24 07:00 Temperature 98.6 F Temperature Source Oral Pulse Rate 80 66 78 Respiratory Rate 16 18 16 Blood Pressure 105/76 111/64 128/64 H Blood Pressure Mean 85 79 85 Pulse Ox 98 98 98 Oxygen Delivery Method Room Air Room Air Room Air Positive well nourished and well developed General Appearance ED: well developed; Negative for pallor HEENT HEENT Narrative: Normocephalic atraumatic No signs of infection noted in the posterior pharynx Eyes PERRL and EOMs intact bilaterally General Eye ED: Negative for scleral icterus Neck supple Resp normal respiratory effort and clear to auscultation bilaterally Cardio regular rate and regular rhythm GI non-distended and no masses GI Narrative: Abdomen is soft and nondistended with normal active bowel sounds. Patient has pain with palpation in the suprapubic and right lower quadrant. No voluntary guarding or rigidity or pulsatile mass Auscultation: normoactive bowel sounds Palpation: soft Narrative: External genitalia is normal. Speculum exam reveals a small amount of of whitish discharge. Cervical os is closed. No active bleeding or dried blood noted. No cervical motion tenderness. No adnexal masses noted but there is slight pain with palpation along the right adnexal region. Back/Spine no CVA tenderness Extremity normal to inspection Neuro oriented x3, CN's II-XII intact bilaterally and no sensory deficits noted Sensorium / Orientation: alert Motor Exam: strength 5/5 throughout Psych mental status grossly normal Skin no rashes or lesions noted and no wounds General Skin Exam: Negative for jaundice or pallor MDM MDM MDM Narrative Medical decision making narrative: Patient arrived to ER with stable vitals and reported spontaneous improvement of her sudden onset of abdominal pain. Pain was greatest in the suprapubic and right lower quadrant. Based on the spontaneous onset as well as spontaneous improvement there is concern for ovarian torsion versus ovarian cyst versus UTI versus complication such as ectopic versus kidney stone. Basic labs were obtained and patient does have mild leukocytosis of 12.9 but lactic acid is normal. test is negative going against complication and there is no sign of UTI/pyelonephritis or blood in the urine to suggest kidney stone. Lipase is normal going against pancreatitis and liver enzymes are normal going against biliary colic. Transvaginal ultrasound confirms a hemorrhagic ovarian cyst on the right which correlates with her history and exam. However as there is no sign of torsion there is no need for emergent [facility] consultation. Therefore patient is otherwise safe for discharge with outpatient follow-up History & Record Review Discussion w/independent historian: Patient and Significant other Lab Data Attestation: I reviewed the patient's lab results. Labs: Laboratory Results - last 24 hr 09/10/24 09/10/24 09/10/24 04:29 05:32 06:34 WBC 12.9 H RBC 4.47 Hgb 11.2 L Hct 34.7 L MCV 77.6 L MCH 25.1 L MCHC 32.3 RDW Std Deviation 42.4 RDW Coeff of [place] 15.1 H Plt Count 348 MPV 10.2 Immature Gran % (Auto) 0.300 Neut % (Auto) 75.7 H Lymph % (Auto) 17.9 L [place] % (Auto) 4.6 Eos % (Auto) 1.1 Baso % (Auto) 0.4 Absolute Neuts (auto) 9.8 H Absolute Lymphs (auto) 2.32 Nucleated RBC % 0 Sodium 138 Potassium 3.9 Chloride 103 Carbon Dioxide 22.6 Anion Gap 12 BUN 16 Creatinine 0.73 Estim Creat Clear Calc 160.03 Est GFR (MDRD) Non-Af 121 BUN/Creatinine Ratio 21.9 H Glucose 100 H Lactic Acid < 1.0 Calcium 9.1 Total Bilirubin 0.31 Direct Bilirubin 0.12 AST 19 ALT 18 Alkaline Phosphatase 56 Total Protein 7.3 Albumin 4.2 Globulin 3.1 Lipase 14 Urine Color Yellow Urine Clarity Clear Urine pH 6.0 Ur Specific [place] 1.015 Urine Protein 15 H Urine Glucose (UA) Normal Urine Ketones Negative Urine Occult Blood 10 H Urine Nitrite Negative Urine Bilirubin Negative Urine Urobilinogen Normal Ur Leukocyte Esterase Negative Urine RBC 0 SEEN Urine WBC 0 SEEN Ur Squamous Epith Cells 0-5 SEEN Urine Bacteria 0 SEEN Urine Mucus 0 SEEN Urine Test Negative Chlamydia DNA (EZE) Cancelled N.gonorrhoeae DNA (EZE) Cancelled Radiography Diagnostic Testing: Clinical Impression(s) from Imaging Studies Transvaginal US 09/10/24 06:30 IMPRESSION: 1. Hemorrhagic right ovarian cyst. 2. Moderately large amount of free fluid within the cul-de-sac Reading Location: [place] [id number] Discharge Plan Triage Chief Complaint: Abd Pain ED Provider: Otis Anna Dx/Rx/DC Orders Clinical Impression: Hemorrhagic cyst of right ovary Instructions: Understanding Ovarian Cysts, ED Ovarian Cyst Prescriptions: New oxycodone-acetaminophen [Percocet] 5-325 mg tablet 1 tab PO Q6H PRN (Reason: pain) 3 Days Qty: 12 0RF ondansetron 4 mg tablet,disintegrating 4 mg PO TID PRN (Reason: nausea and vomiting) Qty: 21 0RF Stand Alone Forms: ED Work / School Excuse Primary Care Provider: Pratima Bass Referrals: Daija Kendrick MD [Med Staff - Active Staff] - (Hemorrhagic ovarian cyst) Pratima Bass [employer] [Primary Care Provider] - Activity Restrictions/Additional Instructions: Your ultrasound showed a ruptured right ovarian cyst which correlates with your physical exam and symptoms. Your body should spontaneously absorb this cyst over time. Please follow-up with [facility] for repeat evaluation and return to the ER should you have any further concerns or worsening of symptoms. Print Language: Japanese Disposition Disposition: Home, Self Care Discharge Date/Time: 09/10/24 08:18
[2024-09-10 08:17] VITALS: BP 115/76; PULSE 64; RESP 18; TEMP 36.6; O2SAT 99
== END 2024-09-10 08:18 | disposition home or self-care (01) ==
PROVIDERS: Emergency Provider Emergency Medicine; PCP Nurse Practitioner Family; Visit Provider Emergency Medicine
DX: N83.201 Unspecified ovarian cyst, right side (principal); R10.31 Right lower quadrant pain; N83.8 Other noninflammatory disorders of ovary, fallopian tube and broad ligament
CPT/HCPCS: 76830; 80048; 80076; 81001; 81025; 83605; 83690; 85025; 87210; 87491; 87591; 96361; 96374; 99285